=== PATIENT | female | born 1940 | race African-American/Black ===

== ENCOUNTER 2018-07-28 14:11 | Inpatient (IN) | payer MEDICARE, OTHER ==
[~2018-07-28] VITALS: Ht 160 cm; Wt 95.3 kg
[2018-07-28 14:42] LABS: BASOPHILS % (AUTO) 0.4 % (0.0-2.0); EOSINOPHILS % (AUTO) 1.3 % (0.0-6.0); HEMATOCRIT 31 % (33-45); LYMPHOCYTES # (AUTO) 0.5 /CMM (0.8-4.8); LYMPHOCYTES % (AUTO) 5.4 % (20.0-44.0); MEAN CORPUSCULAR HGB CONC 32 g/dl (31.0-36.0); MEAN CORPUSCULAR VOLUME 93 fL (82-100); MONOCYTES # (AUTO) 1.1 /CMM (0.1-1.30); MONOCYTES % (AUTO) 12.4 % (2.0-12.0); NEUTROPHILS # (AUTO) 6.8 /CMM (1.8-8.9); NEUTROPHILS % (AUTO) 80.5 % (43.0-81.0); PLATELET COUNT (AUTO) 220 /CMM (150-450); RED BLOOD CELL COUNT(AUTO) 3.37 MIL/uL (4.0-5.2); WHITE BLOOD COUNT (AUTO) 8.5 K/uL (4.3-11.0)
[2018-07-28 15:01] LABS: B-TYPE NATRIURETIC PEPTIDE 29378 PG/ML (0-125); CALCIUM, SERUM 9.9 mg/dL (8.5-10.1); CARBON DIOXIDE 32 mmol/L (21-32); CHLORIDE 92 mmol/L (98-107); CREATININE 6.2 mg/dL (0.6-1.3); GLUCOSE 182 mg/dL (74-106); POTASSIUM 5.4 mmol/L (3.5-5.1); SODIUM SERUM 131 mmol/L (136-145)
[2018-07-28 15:03] LABS: UREA NITROGEN, BLOOD 87 mg/dL (7-18)
[2018-07-28] MEDS ORDERED: CEFTRIAXONE 1GM BAG (ER ONLY) 1 GM/50 ML PIGGYBACK IV ONE (15:30)
--- NOTE | 2018-07-28 15:31 | NUR ---
[facility] PAGED, MILLWRIGHT HELPER
--- NOTE | 2018-07-28 15:37 | NUR ---
CALLED NURSING SUP. FOR TELE BED
[2018-07-28] MEDS ORDERED: CEFTRIAXONE 1GM BAG (ER ONLY) 50 ML IV ONE (15:49)
--- NOTE | 2018-07-28 15:57 | NUR ---
TELE BED 313-1 GIVEN
--- NOTE | 2018-07-28 16:21 | NUR ---
REPORT GIVEN TO SUKUMAR WINKLER FOR MARIANNA; PT WILL BE TRANSPORTED TO 3RD FLOOR VIA ACLS PROTOCOL ONCE MOVE PACKET IS IN ORDER
[2018-07-28] MEDS ORDERED: INSU100V11 SQ (16:25)
[2018-07-28] MEDS ORDERED: GABA-532 PO (16:25)
[2018-07-28] MEDS ORDERED: LINA5TAB PO (16:25)
[2018-07-28] MEDS ORDERED: HYDR-4076 PO (16:25)
[2018-07-28] MEDS ORDERED: NUT.237L85 PO (16:25)
[2018-07-28] MEDS ORDERED: LIDO30AD10 TP (16:25)
[2018-07-28] MEDS ORDERED: SERT50TA PO (16:25)
[2018-07-28] MEDS ORDERED: FLUT16SP BNOSTRILS (16:25)
[2018-07-28] MEDS ORDERED: CARV3.122 PO (16:25)
[2018-07-28] MEDS ORDERED: ATOR10TA PO (16:25)
[2018-07-28] MEDS ORDERED: POLY15DR40 EACHEYE (16:25)
[2018-07-28] MEDS ORDERED: SITA50TA PO (16:25)
[2018-07-28] MEDS ORDERED: SEVE2.4P3 PO (16:25)
[2018-07-28] MEDS ORDERED: MIDO5TAB PO (16:25)
[2018-07-28] MEDS ORDERED: AMIN30LI27 PO (16:25)
[2018-07-28] MEDS ORDERED: PANT40TA2 PO (16:25)
[2018-07-28] MEDS ORDERED: MELA3TAB PO (16:25)
[2018-07-28] MEDS ORDERED: POLY17PO4 PO (16:25)
[2018-07-28] MEDS ORDERED: LACT10SO PO (16:25)
[2018-07-28] MEDS ORDERED: FURO-144 PO (16:25)
[2018-07-28] MEDS ORDERED: LEVO75TA7 PO (16:25)
[2018-07-28] MEDS ORDERED: TRAM50TA2 PO (16:25)
--- NOTE | 2018-07-28 16:30 | NUR ---
RECEIVED REPORT FROM PETERSON ESCAMILLA. PATIENT IS GOING TO [facility] ADMITTED TO TELEMETRY FLOOR FOR INPATIENT SERVICES.
[2018-07-28] MEDS ORDERED: ONDANSETRON HCL/PF 4 MG/2 ML VIAL IVP PRN (17:00)
[2018-07-28] MEDS ORDERED: ACETAMINOPHEN 325 MG TABLET PO PRN (17:00)
[2018-07-28] MEDS ORDERED: MAGNESIUM HYDROXIDE 30 ML UDC PO PRN (17:00)
[2018-07-28] MEDS ORDERED: ZOLPIDEM TARTRATE 5 MG TABLET PO PRN (17:00)
[2018-07-28] MEDS ORDERED: PIPERACILLIN /TAZOBACTAM 2.25 G in IV D5W 50 ML IV SCH (17:00)
[2018-07-28] MEDS ORDERED: MAG HYDROX/AL HYDROX/SIMETH 30 ML UDC PO PRN (17:00)
[2018-07-28] MEDS ORDERED: FEE PK DOSING 1 MIN EA MC ONE (17:04)
--- NOTE | 2018-07-28 17:10 | NUR ---
FINANCIAL DEVELOPEREDUCATION INSTRUCTOR NOTE PATIENT WAS BROUGHT TO THE UNIT FROM ER ON A GURNEY. PATIENT IS STABLE, VITAL SIGNS STABLE. ALERT ORIENTED X3, WITH OCCASIONAL FORGETFULNESS AND CONFUSION. PATIENT IS ON 3L O2 VIA NC SATURATING AT 96%. RESPIRATIONS EVEN BUT SLIGHTLY LABORED DUE TO SOB WITH SPEAKING AND MOVING. IN NO APPARENT DISTRESS OR DISCOMFORT AT THIS TIME. WAS ASSISTED TO THE BED, MADE COMFORTABLE, ORIENTED TO ROOM AND CALL LIGHT. PATIENT IS A POOR HISTORIAN, UNABLE TO OBTAIN SIGNIFICANT MEDICAL HISTORY. TELE MONITORING APPLIED AV PACING ON THE MONITOR WITH HR OF 80. SKIN ASSESSMENT PERFORMED. PICTURES TAKEN PLACED IN CHART. BELONGINGS CHECKED AND NOTED IN THE CHART PATIENT WAS MADE COMFORTABLE IN BED, SAFETY MEASURES APPLIED, BED IN LOW LOCKED POSITION, SIDE RAILS UP X2, ALARM ON, CALL LIGHT WITHIN EASY REACH. HOSPITALIST AWARE OF PATIENT'S ARRIVAL. WILL CARRY OUT ADMISSION ORDERS AND CONTINUE TO MONITOR.
[2018-07-28] MEDS ORDERED: VANCOMYCIN 1 GM in IV D5W 250 ML IV ONE (18:00)
[2018-07-28 18:31] VITALS: BP 94/51
--- NOTE | 2018-07-28 19:20 | NUR ---
RECORD CUTTER CLOSING NOTE PATIENT IN BED. ALERT ORIENTED X3. ON 3L O2 VIA NC, TOLERATING WELL. IN NO APPARENT DISTRESS OR DISCOMFORT AT THIS TIME. RESPIRATIONS EVEN, MILD SOB NOTED WHEN TALKING. PATIENT IS ON TELE MONITORING, AV PACING WITH HR OF 80. CURRENTLY BEING DIALYZED. ABLE TO COMMUNICATE NEEDS IF ASKED. LEFT FA IVC 20G, SL, PATENT AND INTACT. PATIENT KEPT CLEAN AND COMFORTABLE. ALL NEEDS ATTENDED, SAFETY MEASURES IN PLACE, BED IN LOW LOCKED POSITION, SIDE RAILS UP X2, CALL LIGHT WITHIN EASY REACH, WILL ENDORSE TO PM NURSE FOR MARIANNA.
--- NOTE | 2018-07-28 19:21 | NUR ---
BUSINESS PROCESS SPECIALIST OPENING NOTES Received patient, alert and oriented but unable to maintain conversation. Currently on dialysis with HD RN at bedside. with LFA G# 20, SL, patent and intact. With occasional productive cough with thick yellow secretions noted. On O2 via NC @ 2LPM, saturating 96%, no SOB/respiratory noted. Kept HOB elevated at all times. Added Hep B screening per HD RN recommendation, made aware. Clarified accu-chek, Q6H as ordered. BS 120, next due is 0000. No discomfort noted at this time. Kept bed low and locked, siderail x2 up, bed alarm on for safety. Call light within easy reach. Held due meds at this time per HD RN recommendation, to administer post-HD. Will continue to monitor accordingly.
--- NOTE | 2018-07-28 19:22 | NUR ---
On tele monitor with AV pacing @ 80bpm.
[2018-07-28] MEDS ORDERED: DEXTROSE 50%-WATER 50 ML DISP.SYRIN IV PRN ×2 (19:30→21:00)
[2018-07-28] MEDS ORDERED: INSULIN REGULAR, HUMAN 100 UNIT/ML 3 ML VIAL SQ PRN (19:30)
[2018-07-28] MEDS ORDERED: POLYVINYL ALCOHOL 15 ML BOTTLE EACHEYE PRN (19:30)
[2018-07-28] MEDS: CARVEDILOL 3.125 MG TABLET PO SCH (19:30)
[2018-07-28] MEDS ORDERED: POLYETHYLENE GLYCOL 3350 17 GM POWD.PACK PO PRN (19:30)
[2018-07-28 20:00] VITALS: BP 98/50
--- NOTE | 2018-07-28 20:00 | NUR ---
PICKER TENDER NOTES Patient able to expectorate sputum. Sample collected and stored accordingly. Lab notified to metal pickling equipment operator the sample. Provided oral hygiene. Will continue to monitor accordingly.
[2018-07-28] MEDS ORDERED: BLOOD SUGAR DIAGNOSTIC 1 EACH STRIP IN SCH (21:00)
[2018-07-28] MEDS ORDERED: Medication Not On Formulary EA (Melatonin 6 MG) PO SCH (22:00)
--- NOTE | 2018-07-28 22:00 | NUR ---
TRANSIT MIXER OPERATOR NOTES HD done - 1L out. Checked BP 96/57, NM 71. Held Carvidelol at this time, notified MD. Administered IV ATB as ordered. Notified pharmacy for the adjusted time related to dialysis.
[2018-07-28] MEDS: ATORVASTATIN 10 MG TABLET PO SCH (22:34)
[2018-07-28] MEDS: BLOOD SUGAR DIAGNOSTIC 1 EACH STRIP IN SCH (23:59)
[2018-07-29] VITALS: BP 104/56
--- NOTE | 2018-07-29 00:05 | NUR ---
HORTICULTURAL SPECIALTY GROWER INSIDE NOTES BS for 0000 IS 151mg/dl. Held Insulin at this time due to patient NPO status without running IVF. Will continue to monitor the patient accordingly.
[2018-07-29 04:00] VITALS: BP 100/63
[2018-07-29] MEDS: PIPERACILLIN /TAZOBACTAM 2.25 G in IV D5W 50 ML IV SCH ×3 (04:04→20:11)
[2018-07-29] MEDS: BLOOD SUGAR DIAGNOSTIC 1 EACH STRIP IN SCH ×3 (05:46→17:16)
[2018-07-29 06:31] LABS: BASOPHILS % (AUTO) 0.5 % (0.0-2.0); EOSINOPHILS % (AUTO) 1.1 % (0.0-6.0); HEMATOCRIT 30 % (33-45); HEMOGLOBIN 9.6 g/dL (11.5-14.8); LYMPHOCYTES # (AUTO) 0.5 /CMM (0.8-4.8); LYMPHOCYTES % (AUTO) 6.6 % (20.0-44.0); MEAN CORPUSCULAR HGB CONC 32 g/dl (31.0-36.0); MEAN CORPUSCULAR VOLUME 93 fL (82-100); MONOCYTES # (AUTO) 0.8 /CMM (0.1-1.30); MONOCYTES % (AUTO) 11.5 % (2.0-12.0); NEUTROPHILS # (AUTO) 5.6 /CMM (1.8-8.9); NEUTROPHILS % (AUTO) 80.3 % (43.0-81.0); PLATELET COUNT (AUTO) 204 /CMM (150-450); RED BLOOD CELL COUNT(AUTO) 3.19 MIL/uL (4.0-5.2)
[2018-07-29 06:47] LABS: CALCIUM, SERUM 9.7 mg/dL (8.5-10.1); CARBON DIOXIDE 30 mmol/L (21-32); CHLORIDE 97 mmol/L (98-107); CREATININE 4.2 mg/dL (0.6-1.3); GLUCOSE 146 mg/dL (74-106); POTASSIUM 4.6 mmol/L (3.5-5.1); SODIUM SERUM 137 mmol/L (136-145); UREA NITROGEN, BLOOD 50 mg/dL (7-18)
[2018-07-29 06:52] LABS: IRON, SERUM 17 ug/dl (50-175); TOTAL IRON BINDING CAPACITY 177 ug/dl (250-450)
--- NOTE | 2018-07-29 06:53 | NUR ---
RESPOOLER NOTES Patient noted asleep at this time. S/P HD with 1L output, documented by the HD RN. With O2 inahalation via NC @ 3LPM, saturating well, no SOB/respiratory distress noted. Patient still with occasional productive cough with moderate thick yellow sputum noted. All due meds given as order, no ASE noted. All nursing needs attended. Kept patient clean, dry and comfortable on bed. Kept bed low and locked, siderails up, call light within easy reach. Endorsed to the next shift. Addendum: 07/29/18 at 0654 by ANDRAE CALIX RN On tele monitor - AV pacing @ 80bpm.
[2018-07-29 06:58] LABS: CHOLESTEROL 162 mg/dL (<200); HDL CHOLESTEROL 60 mg/dL (40-60); LDL 74 mg/dL (0-99); THYROID STIMULATING HORMONE 1.596 uIU/mL (0.358-3.74); TRIGLYCERIDES 123 mg/dL (30-150)
[2018-07-29] MEDS ORDERED: VANCOMYCIN 500 MG in IV D5W 100 ML IV PRN (07:00)
--- NOTE | 2018-07-29 07:38 | NUR ---
TERRAZZO WORKER HELPER OPENING NOTES RECEIVED PT LAYING IN BED WITH HOB ELEVATED. PT IS A/O X2, AFEBRILE. RESPIRATIONS ARE EVEN AND UNLABORED, NOT IN ANY ACUTE DISTRESS NOTED. PT DENIES ANY PAIN AT THIS TIME, NO C/O SOB, N/V. IV SITE TO LFA INTACT, NO INFILTRATION NOTED. DRESSING KEPT CLEAN AND DRY. SAFETY MEASURES ARE IN PLACE. WILL CONTINUE TO MONITOR THROUGHOUT SHIFT FOR CONTINUITY OF CARE.
[2018-07-29 07:58] VITALS: BP 90/50
[2018-07-29 08:00] VITALS: BP 90/50
--- NOTE | 2018-07-29 08:55 | NUR ---
MS RN NOTES-- PT WAS SEEN AND EXAMINED BY DR. CAPELLAN, ORDERS CARRIED OUT.
[2018-07-29] MEDS ORDERED: FUROSEMIDE 40 MG TABLET PO SCH (09:00)
[2018-07-29] MEDS ORDERED: SEVELAMER CARBONATE 800 MG TABLET PO SCH (09:00)
[2018-07-29] MEDS: CARVEDILOL 3.125 MG TABLET PO SCH ×2 (09:00→17:00)
[2018-07-29] MEDS ORDERED: GABAPENTIN 100 MG CAPSULE PO SCH (09:00)
[2018-07-29] MEDS: LEVOTHYROXINE SODIUM 75 MCG TABLET PO SCH (09:34)
[2018-07-29] MEDS: MIDODRINE HCL (5MG) 5 MG TABLET PO SCH ×3 (09:37→17:22)
[2018-07-29] MEDS: SERTRALINE HCL 50 MG TABLET PO SCH (09:38)
[2018-07-29] MEDS: GABAPENTIN 100 MG CAPSULE PO SCH ×3 (09:38→17:19)
[2018-07-29] MEDS: TRAMADOL HCL 50 MG TABLET PO SCH ×3 (09:39→17:19)
[2018-07-29] MEDS: LACTULOSE 10 G/15 ML UDC (PYXIS) PO SCH ×2 (09:40→17:19)
[2018-07-29] MEDS: PROSOURCE / PROSTAT (PYXIS) 30 ML UDC PO SCH ×2 (09:40→17:18)
[2018-07-29] MEDS: LIDOCAINE 5% (PATCH) 1 EA PATCH TP SCH (09:56)
[2018-07-29] MEDS: SEVELAMER CARBONATE 0.8 GM POWD.PACK PO SCH ×2 (10:29→12:02)
[2018-07-29] MEDS: INSULIN REGULAR, HUMAN 100 UNIT/ML 3 ML VIAL SQ PRN ×2 (11:37→17:24)
[2018-07-29] MEDS: PANTOPRAZOLE 40 MG TABLET.DR PO SCH (11:38)
[2018-07-29] MEDS: NEPRO VAN 237 ML CAN PO SCH (13:41)
[2018-07-29] MEDS: SOD FERRIC GLUC 125 MG in IV NS 0.9% 100 ML IV SCH (13:41)
[2018-07-29 16:00] VITALS: BP 92/56
[2018-07-29] MEDS: LACTOBACILLUS RHAMNOSUS GG 1 EACH CAP.SPRINK PO SCH (17:18)
[2018-07-29] MEDS: SEVELAMER CARBONATE 800 MG TABLET PO SCH (17:19)
--- NOTE | 2018-07-29 18:29 | NUR ---
MS RN CLOSING NOTES ALL DUE MEDS GIVEN, NEEDS MET AND RENDERED. PT IS A/O X2, AFEBRILE. RESPIRATIONS ARE EVEN AND UNLABORED, NOT IN ANY ACUTE DISTRESS NOTED. PT DENIES ANY PAIN AT THIS TIME, NO C/O N/V. HOB KEPT ELEVATED TO ENHANCE BREATHING. IV TO LFA INFILTRATED. NO REDNESS, WARMTH NOTED. ATTEMPTED TO INSERT IV X3, UNSUCCESSFUL. WILL TRY AGAIN. SAFETY MEASURES ARE IN PLACE. REMINDED PT TO USE CALL LIGHT WHEN ASSISTANCE IS NEEDED, CALL LIGHT IS LEFT WITHIN REACH. WILL ENDORSE TO NEXT SHIFT FOR CONTINUITY OF CARE.
--- NOTE | 2018-07-29 19:51 | NUR ---
MS/RN OPENING NOTES RECEIVED PATIENT IN BED, AWAKE, ALERT, REQUIRE IV INSERTION, UNABLE TO INSERT, WITH FAILED ATTEMPT X3. BY AM RN, ICU NURSE REQUEST AND TO FOLLOW UP FOR INSERTION, RESPIRATIONS EVEN AND UNLABORED, ON 2 LITER OXYGEN VIA NC, WILL MONITOR FOR ANY CHANGES, ABLE TO COUGH OUT SECRETIONS. NO GUARDING OR GRIMACE, OFFERED WATER TO DRINK, BED LOCKED. CALL LIGHTS WITHIN REACH. WILL MONITOR.
[2018-07-29 20:00] VITALS: BP_SYST 101; BP_SYST 95; BP_DIAS 44; BP_DIAS 49
--- NOTE | 2018-07-29 20:01 | NUR ---
MS/RN NOTES IV INSERTED ON LEFT HAND GAUGE 20 TOLERATED PROCEDURE, ABLE TO FLUSH,
[2018-07-29] MEDS: ATORVASTATIN 10 MG TABLET PO SCH (20:55)
[2018-07-30] VITALS: BP 102/47
[2018-07-30] MEDS: BLOOD SUGAR DIAGNOSTIC 1 EACH STRIP IN SCH ×4 (00:15→17:07)
[2018-07-30] MEDS: PIPERACILLIN /TAZOBACTAM 2.25 G in IV D5W 50 ML IV SCH ×3 (04:53→20:22)
--- NOTE | 2018-07-30 05:29 | NUR ---
ms/rn notes BLOOD SUGAR CHECK AT 151 REFUSE COVERAGE AT THIS TIME.
--- NOTE | 2018-07-30 06:28 | NUR ---
313-1MS/RN NOTES PATIENT ABLE TO SLEEP DURING THE NIGHT, ALERT X3, WEAK, SKIN WARM TO TOUCH, REPIRATIONS EVEN AND UNLABORES WITH OXYGEN VIA NC AT 2L, MONITORED FOR ANY CHANGES, BED LOCKED, CALL LIGHTS WITHIN REACH, WILL ENDORSE TO AM RN FOR MARIANNA.
[2018-07-30 06:31] LABS: BASOPHILS % (AUTO) 0.3 % (0.0-2.0); EOSINOPHILS % (AUTO) 1.1 % (0.0-6.0); HEMATOCRIT 27 % (33-45); HEMOGLOBIN 8.4 g/dL (11.5-14.8); LYMPHOCYTES # (AUTO) 0.6 /CMM (0.8-4.8); LYMPHOCYTES % (AUTO) 8.3 % (20.0-44.0); MEAN CORPUSCULAR HGB CONC 32 g/dl (31.0-36.0); MEAN CORPUSCULAR VOLUME 94 fL (82-100); MONOCYTES # (AUTO) 0.9 /CMM (0.1-1.30); MONOCYTES % (AUTO) 13.6 % (2.0-12.0); NEUTROPHILS # (AUTO) 5.1 /CMM (1.8-8.9); NEUTROPHILS % (AUTO) 76.7 % (43.0-81.0); PLATELET COUNT (AUTO) 199 /CMM (150-450); RED BLOOD CELL COUNT(AUTO) 2.84 MIL/uL (4.0-5.2); WHITE BLOOD COUNT (AUTO) 6.6 K/uL (4.3-11.0)
[2018-07-30 06:49] LABS: IRON, SERUM 42 ug/dl (50-175); TOTAL IRON BINDING CAPACITY 154 ug/dl (250-450)
[2018-07-30 07:27] LABS: FERRITIN 1230 ng/mL (8-388)
--- NOTE | 2018-07-30 07:34 | NUR ---
MS RN OPENING NOTES RECEIVED PT LAYING IN BED WITH HOB ELEVATED. PT IS A/O X2, AFEBRILE. RESPIRATIONS ARE EVEN AND UNLABORED, NOT IN ANY ACUTE DISTRESS NOTED. PT GENERALIZED PAIN 10/10, WILL MEDICATE NEEDED PER ORDERS. HOB KEPT ELEVATED TO ENHANCE BREATHING, NO N/V. IV SITE TO LEFT HAND INTACT, NO INFILTRATION NOTED. DRESSING KEPT CLEAN AND DRY. SAFETY MEASURES ARE IN PLACE. WILL CONTINUE TO MONITOR THROUGHOUT SHIFT FOR CONTINUITY OF CARE.
[2018-07-30 08:00] VITALS: BP 87/44
[2018-07-30] MEDS: SEVELAMER CARBONATE 800 MG TABLET PO SCH ×3 (08:14→17:09)
--- NOTE | 2018-07-30 08:45 | NUR ---
MS WINKLER NOTES-- PT NOTED WITH SOFT, LOOSE STOOL NOTED RED/BROWN COLOR. STOOL COLLECTED AND READY FOR SPECIMEN P/U. NOTIFIED LAB. Addendum: 07/30/18 at 1308 by DARIA BROWN RN NOTIFIED CHARGE NURSE, WHO THEN NOTIFIED DR. CAPELLAN AT 9AM MEETING.
[2018-07-30] MEDS: LACTOBACILLUS RHAMNOSUS GG 1 EACH CAP.SPRINK PO SCH ×2 (08:50→17:09)
[2018-07-30] MEDS: GABAPENTIN 100 MG CAPSULE PO SCH ×3 (08:50→17:10)
[2018-07-30] MEDS: LEVOTHYROXINE SODIUM 75 MCG TABLET PO SCH (08:50)
[2018-07-30] MEDS: MIDODRINE HCL (5MG) 5 MG TABLET PO SCH ×3 (08:51→17:10)
[2018-07-30] MEDS: SERTRALINE HCL 50 MG TABLET PO SCH (08:51)
[2018-07-30] MEDS: TRAMADOL HCL 50 MG TABLET PO SCH ×3 (08:51→17:10)
[2018-07-30] MEDS: LIDOCAINE 5% (PATCH) 1 EA PATCH TP SCH (08:52)
[2018-07-30] MEDS: LACTULOSE 10 G/15 ML UDC (PYXIS) PO SCH (08:53)
[2018-07-30] MEDS: CARVEDILOL 3.125 MG TABLET PO SCH ×2 (08:54→17:00)
[2018-07-30] MEDS: PROSOURCE / PROSTAT (PYXIS) 30 ML UDC PO SCH ×2 (08:57→17:11)
--- NOTE | 2018-07-30 09:32 | NUR ---
MS RN NOTES-- LACTULOSE HELD D/T SOFT, LOOSE STOOL.
[2018-07-30] MEDS: LEVALBUTEROL HCL NEB 1.25 MG/0.5 ML VIAL.NEB IH SCH ×3 (10:49→23:31)
[2018-07-30] MEDS: PANTOPRAZOLE 40 MG TABLET.DR PO SCH (11:22)
[2018-07-30] MEDS: INSULIN REGULAR, HUMAN 100 UNIT/ML 3 ML VIAL SQ PRN (11:32)
[2018-07-30] MEDS: NEPRO VAN 237 ML CAN PO SCH (12:49)
--- NOTE | 2018-07-30 13:08 | NUR ---
MS RN NOTES-- PT NOTED WITH MODERATE AMT OF LOOSE, DARK RED DISCHARGE FROM RECTUM. NOTIFIED CHARGE NURSE AND DR. CAPELLAN. PER DR. CAPELLAN, "PLS COLLECT STOOL FOR OCCULT BLOOD." NOTIFIED DR. CAPELLAN, 2 STOOL SPECIMENS COLLECTED. NOTIFIED LAB TO P/U SECOND SPECIMEN.
[2018-07-30] MEDS: SOD FERRIC GLUC 125 MG in IV NS 0.9% 100 ML IV SCH (14:06)
--- NOTE | 2018-07-30 14:15 | NUR ---
MS RN NOTES-- PER DR. CAPELLAN, HE NOTIFIED GI FOR CONSULT.
[2018-07-30 15:23] LABS: OCCULT BLOOD STOOL POSITIVE (NEGATIVE)
[2018-07-30 15:23] LABS: OCCULT BLOOD STOOL POSITIVE (NEGATIVE)
[2018-07-30 16:00] VITALS: BP 87/51
[2018-07-30] MEDS ORDERED: MAGNESIUM CITRATE 296 ML BOTTLE PO ONE (16:30)
[2018-07-30] MEDS ORDERED: NA PHOS,M-B/NA PHOS,DI-BA 1 EA ENEMA RC PRN (16:30)
[2018-07-30] MEDS ORDERED: PEG 3350/NA SULF,BICARB,CL/KCL 4,000 ML BOTTLE PO ONE (16:30)
[2018-07-30] MEDS ORDERED: FERROUS SULFATE (325 MG) 325 MG/TAB TABLET PO SCH (17:00)
--- NOTE | 2018-07-30 17:00 | NUR ---
MS PETERSON NOTES-- CLARIFIED ORDER FOR LACTULOSE WITH BLAEN BLANCO. PER BLANE BLANCO TO D/C.
[2018-07-30] MEDS: PANTOPRAZOLE 40 MG VIAL IV SCH (17:09)
[2018-07-30] MEDS: SUCRALFATE 1 G/10 ML UDC GT SCH ×2 (17:09→21:20)
--- NOTE | 2018-07-30 17:49 | NUR ---
MS RN NOTES-- BLOOD SUGAR 146. PT REFUSED 2 UNITS OF INSULIN. EXPLAINED THE RISKS AND BENEFITS, PT STILL REFUSED. NO S/SX OF HYPO/HYPERGLYCEMIA NOTED. WILL CONTINUE TO MONITOR.
--- NOTE | 2018-07-30 18:07 | NUR ---
MS RN NOTES-- CALLED [facility] (NEXT OF KIN ON FACESHEET), WOMEN ANSWERED AND STATED "I KEEP TELLING YOU GUYS, YOUVE GOT THE WRONG NUMBER." PT IS UNABLE TO SIGN D/T LOC.
--- NOTE | 2018-07-30 18:26 | NUR ---
MS RN CLOSING NOTES ALL DUE MEDS GIVEN, NEEDS MET AND RENDERED. PT IS A/O X2, AFEBRILE. RESPIRATIONS ARE EVEN AND UNLABORED, NOT IN ANY ACUTE DISTRESS NOTED. PT DENIES ANY PAIN AT THIS TIME, NO C/O N/V. HOB KEPT ELEVATED TO ENHANCE BREATHING. IV TO L WRIST INTACT, NO INFILTRATION NOTED. DRESSING KEPT CLEAN AND DRY. SAFETY MEASURES ARE IN PLACE. REMINDED PT TO USE CALL LIGHT WHEN ASSISTANCE IS NEEDED, CALL LIGHT IS LEFT WITHIN REACH. WILL ENDORSE TO NEXT SHIFT FOR CONTINUITY OF CARE.
--- NOTE | 2018-07-30 18:28 | NUR ---
MS RN NOTES-- CALLED [facility] AND THE NUMBER THEY HAVE MATCHES THE NUMBER WE HAVE IN CHART. NOTIFIED CHARGE NURSE, BLANE BLANCO AND DR. CAPELLAN. REQUIRES TO SIGNATURES. BLANE BLANCO AND DR. CAPELLAN SIGNED CONSENTS FOR EGD AND COLONSCOPY.
--- NOTE | 2018-07-30 19:42 | NUR ---
MS/RN OPENING NOTES RECEIVED PATIENT IN BED, AWAKE, ALERT X2, SKIN WARM TO TOUCH, DISCUSSED PLAN OF CARE AND VERBALIZED UNDERSTANDING REGARDING PREPARATION FOR THE EGD/COLONOSCOPY TOMORROW, REQUIRE TO DRINK SOME GOLITELY , ABLE TO TAKE SIPS OF WATER BUT VERBALIZED " i WONT BE ABLE TO DRINK IT ALL" DISCUSSED BENEFIR, TO MONITOR AND CHANGE NEEDED. RESPIRATIONS EVEN AND UNLABORED. BED LOCKED. MONITORED FOR ANY CHANGES. IV ON LEFT HAND GAUGE 20 PATENT WITH NO S/S OF INFILTRATION, TO MONITOR VITAL SIGNS AND HYPO/HYPERGLYCEMIA.
[2018-07-30 20:00] VITALS: BP 92/54
[2018-07-30 20:04] VITALS: BP 92/54
--- NOTE | 2018-07-30 20:18 | NUR ---
MD PRINCE CONTACTED REPORTED PATIENT UNABLE TO TOERATE GOLITELY,DIALYSIS PATIENT , REGARDING PROCEDURE OF EGD AND COLONOSCOPY. FOR TOMORROWMAY NEED ENEMA, MD MADE AWARE AND TO F/U WITH CLOSING COORDINATOR AND AWAITING FOR ORDER INSTRUCTION AT THIS TIME.
[2018-07-30] MEDS: ATORVASTATIN 10 MG TABLET PO SCH (21:19)
[2018-07-30] MEDS ORDERED: VANCOMYCIN 1 GM in IV D5W 250 ML IV ONE (22:00)
--- NOTE | 2018-07-30 22:35 | NUR ---
MS/RN NOTES VANCOMYCIN NOT ADMINISTERED ORDERED TO ADMINISTER AFTER HEMODIALYSIS TREATMENT DONE. PER MD DIALYSIS/NURSE TO BE SCHEDULED TOMORROW.
[2018-07-31] MEDS: BLOOD SUGAR DIAGNOSTIC 1 EACH STRIP IN SCH ×5 (00:16→23:43)
--- NOTE | 2018-07-31 00:20 | NUR ---
MS/RN NOTES BLOOD SUGAR AT 155, PATIENT WAS GIVEN SOME GOLITELY DURING , REFUSE TO HAVE COVERAGE OF IONSULIN, MADE AWARE OF BENEFITS.
[2018-07-31] MEDS: PIPERACILLIN /TAZOBACTAM 2.25 G in IV D5W 50 ML IV SCH ×3 (05:49→21:11)
[2018-07-31 06:31] LABS: OCCULT BLOOD STOOL POSITIVE (NEGATIVE)
--- NOTE | 2018-07-31 06:52 | NUR ---
313-1 MS/RN NOTES PATIENT SLEPT FEW HOURS, REQUIRE ASSISTANCE AND MONITORING. RESPIRATIONS EVEN AND UNLABOREDM SKIN WARM TO TOUCHMONITORED FOR MARGARET CHANGES.BED LOCKED CALL LIGHTS WITHIN REACH.
[2018-07-31] MEDS ORDERED: VANCOMYCIN 500 MG in IV D5W 100 ML IV PRN (07:00)
--- NOTE | 2018-07-31 07:20 | NUR ---
RN Medsurg notes RN medsurg opening notes PT is resting in bed comfortably. PT is alert and oriented X2. Respiration is clear, equal and unlabored. NO SOB. IV at Left hand is intact, patent and flush without resistance. Bed at low position and call light is within reach. Will continue to monitor.
[2018-07-31] MEDS: LEVALBUTEROL HCL NEB 1.25 MG/0.5 ML VIAL.NEB IH SCH ×3 (07:38→23:18)
[2018-07-31 08:00] VITALS: BP 90/55
[2018-07-31] MEDS: CARVEDILOL 3.125 MG TABLET PO SCH ×2 (09:00→17:00)
[2018-07-31] MEDS: PROSOURCE / PROSTAT (PYXIS) 30 ML UDC PO SCH ×2 (09:00→17:00)
[2018-07-31] MEDS: PANTOPRAZOLE 40 MG VIAL IV SCH ×2 (09:17→18:14)
[2018-07-31] MEDS: LEVOTHYROXINE SODIUM 75 MCG TABLET PO SCH (09:17)
[2018-07-31] MEDS: LACTOBACILLUS RHAMNOSUS GG 1 EACH CAP.SPRINK PO SCH ×2 (09:17→18:37)
[2018-07-31] MEDS: SERTRALINE HCL 50 MG TABLET PO SCH (09:17)
[2018-07-31] MEDS: SEVELAMER CARBONATE 800 MG TABLET PO SCH ×4 (09:18→18:00)
[2018-07-31] MEDS: GABAPENTIN 100 MG CAPSULE PO SCH ×3 (09:24→18:37)
[2018-07-31] MEDS: MIDODRINE HCL (5MG) 5 MG TABLET PO SCH ×3 (09:24→18:37)
[2018-07-31] MEDS: SUCRALFATE 1 G/10 ML UDC GT SCH ×4 (09:24→23:41)
[2018-07-31] MEDS: TRAMADOL HCL 50 MG TABLET PO SCH ×3 (09:27→18:38)
[2018-07-31] MEDS: LIDOCAINE 5% (PATCH) 1 EA PATCH TP SCH (11:01)
[2018-07-31 11:14] LABS: BASOPHILS # (AUTO) 0.1 /CMM (0.0-0.2); BASOPHILS % (AUTO) 1.3 % (0.0-2.0); EOSINOPHILS % (AUTO) 1.2 % (0.0-6.0); HEMATOCRIT 23 % (33-45); HEMOGLOBIN 7.4 g/dL (11.5-14.8); LYMPHOCYTES # (AUTO) 0.5 /CMM (0.8-4.8); LYMPHOCYTES % (AUTO) 6.1 % (20.0-44.0); MEAN CORPUSCULAR HGB CONC 32 g/dl (31.0-36.0); MEAN CORPUSCULAR VOLUME 93 fL (82-100); MONOCYTES # (AUTO) 0.7 /CMM (0.1-1.30); MONOCYTES % (AUTO) 9.8 % (2.0-12.0); NEUTROPHILS # (AUTO) 6.1 /CMM (1.8-8.9); NEUTROPHILS % (AUTO) 81.6 % (43.0-81.0); PLATELET COUNT (AUTO) 205 /CMM (150-450); RED BLOOD CELL COUNT(AUTO) 2.49 MIL/uL (4.0-5.2); WHITE BLOOD COUNT (AUTO) 7.5 K/uL (4.3-11.0)
--- NOTE | 2018-07-31 12:17 | NUR ---
RN MS NOTES DR. SALDIVAR INFORMED OF PT'S LATEST H/H, .07/22, SAID HE IS AWARE OF IT, NO NEW ORDER GIVEN.
[2018-07-31] MEDS: INSULIN REGULAR, HUMAN 100 UNIT/ML 3 ML VIAL SQ PRN (12:30)
--- NOTE | 2018-07-31 13:15 | NUR ---
Julia RN notes PT refused Renagel medication. PT education and teaching provided and PT still refused the medication.
[2018-07-31] MEDS: NEPRO VAN 237 ML CAN PO SCH (14:33)
[2018-07-31 16:00] VITALS: BP 111/77
--- NOTE | 2018-07-31 17:00 | NUR ---
RN MS NOTES PT REFUSE RENAGEL TABS, EXPLAINED RISKS AND BENEFITS, STILL REFUSED.
--- NOTE | 2018-07-31 18:00 | NUR ---
RN MS NOTES PT IN BED, AWAKE, NOT IN DISTRESS, SEEN BY FRANCIS ARGUELLES, INFORMED THAT PT UNABLE TO TOLERATE PO, ORDERED TO INSERT NGT AND RESTART GOLYTELY, NGT INSERTED, AWAITING XRAY VERIFICATION OF PLACEMENT, ALSO ORDERED TO TRANSFUSE 1 UNIT PRBC, NOTED AND CARRIED OUT, PT TOLERATED PROCEDURE WELL, PM MEDS GIVEN, KEPT COMFORTABLE IN BED.
[2018-07-31] MEDS ORDERED: PEG 3350/NA SULF,BICARB,CL/KCL 4,000 ML BOTTLE PO ONE (18:30)
--- NOTE | 2018-07-31 19:09 | NUR ---
RN medsurg closing notes PT is resting in bed. no complaints of pain, nausea or vomiting. Pt is in 2L NC. No SOB. NG tube has been inserted per MD order. IV is intact in Left hand patent, intact and infusing well. HOB elevated to help with breathing and prevent aspiration. Last blood glucose was 164. Meds have been given and assisted all needs. Bed at low position and call light is within reach. Will endorse to PM nurse.
--- NOTE | 2018-07-31 19:30 | NUR ---
RN NOTES RECEIVED PT. AWAKE ON BED, A/OX2, HAS GI BLEEDING, NG-TUBE IN PLACE -FOR GOLYTELY, NOT IN DISTRESS, NO SOB, CALL LIGHT WITHIN REACH, SIDERAILSUPX2, CONTINUE TO MONITOR
[2018-07-31 20:00] VITALS: BP 111/58
--- NOTE | 2018-07-31 20:25 | NUR ---
RN NOTES CHECK NG-TUBE PLACEMENT BEFORE STARTING GIVING GOLYTELY.. NG-TUBE IN PLACE
--- NOTE | 2018-07-31 20:30 | NUR ---
RN NOTES START GIVING GOLYTELY THROUGH NG-TUBE, PT. IS TOLERATING WELL, CONTINUE TO MONITOR
[2018-07-31] MEDS ORDERED: VANCOMYCIN 1 GM in IV D5W 250 ML IV ONE (21:00)
--- NOTE | 2018-07-31 21:00 | NUR ---
RN NOTES DIALYSIS NURSE CAME .. CALLED PHARMACY FOR VANCOMYCIN IV TO BE GIVEN WITH HD.. SPOKE TO BRANDY AND INSTEAD OF GIVING 5OOMG SHE WILL GIVE 1 GM OF VANCO.FOR INITIAL DOSE
[2018-07-31] MEDS ORDERED: BISACODYL (5 MG) 5 MG TABLET.DR PO PRN (22:00)
--- NOTE | 2018-07-31 23:19 | NUR ---
RT NOTE PT IS ON DIALYSIS AT THE MOMENT. DIALYSIS NURSE DOES NOT WANT ME TO GIVE THE PT BREATHING TX RIGHT NOW. RN AWARE.
--- NOTE | 2018-07-31 23:30 | NUR ---
RN NOTES RECEIVED A CALL FROM FRANCIS VELEZ TO STOP THE GOLYTELY BECAUSE PT. EGD WAS RESCHEDULED ON SATURDAY AND PUT BACK PT. ON CLEAR LIQUID DIET.. INFORMED FRANCIS VELEZ THAT PT. STILL BLEEDING , FRANCIS ORDERED TO GIVE THE CARAFATE WHICH PT. IS GETTING ONE ALREADY AND PT IS ALSO GETTING PROTONIX IV BID, ORDER NOTED AND CARRIED OUT
[2018-07-31] MEDS: ATORVASTATIN 10 MG TABLET PO SCH (23:42)
[2018-07-31] MEDS: HYDROCODONE/APAP 5/325MG 1 EACH TABLET PO PRN (23:59)
[2018-08-01] VITALS (74 sets, daily range): BP systolic 38–134; BP diastolic 20–98
--- NOTE | 2018-08-01 | NUR ---
RN NOTES BLOOD SUGAR-156.. NO COVERAGE GIVEN, PT. DOESN'T WANT TO EAT
--- NOTE | 2018-08-01 00:10 | NUR ---
RN NOTES INFORMED ALLEN SARGENT THAT PT IS BLEEDING A LOT , PT HAS GI BLEED AND WAS SUPPOSED TO BE GIVEN A 1 UNIT PRBC BUT THE DIALYSIS JUST FINISHED AT 2300 AND NEED ANOTHER DOCTOR TO SIGN A CONSENT FOR BLOOD TRANSFUSION. ALLEN SAREGNT ORDER STAT CBC, ORDER NOTED AND CARRIED OUT
--- NOTE | 2018-08-01 00:30 | NUR ---
RN NOTES PATIENT PULLED OUT HER NG-TUBE AND REFUSED TO HAVE ANOTHER ONE
[2018-08-01 00:36] LABS: BASOPHILS # (AUTO) 0.1 /CMM (0.0-0.2); BASOPHILS % (AUTO) 1.3 % (0.0-2.0); EOSINOPHILS % (AUTO) 1.5 % (0.0-6.0); HEMATOCRIT 21 % (33-45); LYMPHOCYTES # (AUTO) 0.4 /CMM (0.8-4.8); LYMPHOCYTES % (AUTO) 5.7 % (20.0-44.0); MEAN CORPUSCULAR HGB CONC 32 g/dl (31.0-36.0); MEAN CORPUSCULAR VOLUME 93 fL (82-100); MONOCYTES # (AUTO) 0.8 /CMM (0.1-1.30); MONOCYTES % (AUTO) 10.4 % (2.0-12.0); NEUTROPHILS # (AUTO) 6.1 /CMM (1.8-8.9); NEUTROPHILS % (AUTO) 81.1 % (43.0-81.0); PLATELET COUNT (AUTO) 202 /CMM (150-450); RED BLOOD CELL COUNT(AUTO) 2.22 MIL/uL (4.0-5.2); WHITE BLOOD COUNT (AUTO) 7.6 K/uL (4.3-11.0)
[2018-08-01 00:40] LABS: HEMOGLOBIN 6.6 g/dL (11.5-14.8)
--- NOTE | 2018-08-01 00:48 | NUR ---
RN NOTES INFORMED ALLEN HUDSON PATIENT H&H IS 6.6... HE ORDER 1 UNIT PRBC TO BE GIVEN.ORDER NOTED AND CARRIED OUT
[2018-08-01 00:58] LABS: EOSINOPHILS % (MANUAL) 2 % (0-4); LYMPHOCYTES % (MANUAL) 7 % (16-48); MONOCYTES % (MANUAL) 10 % (0-11.0); NEUTROPHILS % (MANUAL) 81 (42-76)
--- NOTE | 2018-08-01 01:22 | NUR ---
RN NOTES START BLOOD TRANFUSION PT. V/S IS 88/46- MD MADE AWARE , WILL CONTINUE TO MONITOR
--- NOTE | 2018-08-01 01:40 | NUR ---
RN NOTES CHECKED PT. BLOOD PRESSURE MANUALLY 90/50 ... BLOOD TRANSFUSION IS RUNNING NO, REACTION NOTED, CONTINUE TO MONITOR
--- NOTE | 2018-08-01 04:50 | NUR ---
RN NOTES BLOOD TRANSFUSION FINISHED, BP WENT UP TO 91/61... NO REACTION NOTED, CONTINUE TO MONITOR
[2018-08-01] MEDS: PIPERACILLIN /TAZOBACTAM 2.25 G in IV D5W 50 ML IV SCH ×3 (05:19→20:26)
[2018-08-01] MEDS: BLOOD SUGAR DIAGNOSTIC 1 EACH STRIP IN SCH ×3 (05:33→18:00)
--- NOTE | 2018-08-01 07:00 | NUR ---
RN NOTES AWAKE, MORNING CARE RENDERED, SIDERAILSUPX2, NO T IN DISTRESS, NO PAIN NOTED, PT. NEEDS ATTENDED
[2018-08-01] MEDS: LEVALBUTEROL HCL NEB 1.25 MG/0.5 ML VIAL.NEB IH SCH ×3 (07:54→23:49)
--- NOTE | 2018-08-01 08:00 | NUR ---
MS RN NOTES PT ALERT ORIENTED X 2, NO SOB OR ANY ACUTE DISTRESS NOTED. BLOOD PRESSURE NOTED 78/42, HR 94, RR 20. PT REPORT DIZZINESS. PT POSITIONED [place], BP RECHECKED 82/46. [place] 5MG ADMINISTERED. DR. CAPELLAN MADE AWARE ORDERS OBTAINED FOR 1 UNIT PRBC STAT AND 500 ML NS BOLUS STAT. PT EVALUATED BY DR. NUNEZ ORDERS GIVEN TO TRANSFER PT TO ICU. NOTED AND CARRIED OUT. CHARGE NURSE MADE AWARE, PT TO BE TRANSFER TO ROOM 259.
[2018-08-01] MEDS: MIDODRINE HCL (5MG) 5 MG TABLET PO SCH ×3 (08:07→16:36)
[2018-08-01] MEDS: PANTOPRAZOLE 40 MG VIAL IV SCH ×2 (08:07→16:34)
[2018-08-01] MEDS: SUCRALFATE 1 G/10 ML UDC GT SCH ×4 (08:08→22:16)
[2018-08-01] MEDS: LEVOTHYROXINE SODIUM 75 MCG TABLET PO SCH (08:09)
--- NOTE | 2018-08-01 08:15 | NUR ---
MS RN NOTES PT TRANSFERRED TO ICU. REPORT GIVEN AT BEDSIDE TO
[2018-08-01] MEDS ORDERED: IV NS 0.9% 500 ML BAG IV ONE (08:30)
[2018-08-01] MEDS ORDERED: IV NS 0.9% 500 ML BAG IV STA (08:33)
[2018-08-01 08:50] LABS: BASOPHILS % (AUTO) 0.3 % (0.0-2.0); EOSINOPHILS % (AUTO) 0.8 % (0.0-6.0); HEMATOCRIT 21 % (33-45); HEMOGLOBIN 6.7 g/dL (11.5-14.8); LYMPHOCYTES # (AUTO) 0.6 /CMM (0.8-4.8); LYMPHOCYTES % (AUTO) 6.2 % (20.0-44.0); MEAN CORPUSCULAR HGB CONC 32 g/dl (31.0-36.0); MEAN CORPUSCULAR VOLUME 93 fL (82-100); MONOCYTES # (AUTO) 0.8 /CMM (0.1-1.30); MONOCYTES % (AUTO) 8.7 % (2.0-12.0); NEUTROPHILS # (AUTO) 7.6 /CMM (1.8-8.9); PLATELET COUNT (AUTO) 166 /CMM (150-450); RED BLOOD CELL COUNT(AUTO) 2.24 MIL/uL (4.0-5.2)
[2018-08-01] MEDS: CARVEDILOL 3.125 MG TABLET PO SCH ×2 (09:00→16:35)
--- NOTE | 2018-08-01 09:00 | NUR ---
received pt from [facility], s/p low GI bleed, alert, follows commands, AV pacing, on 3L 02 sat well, bloody BM, low h/h PRBCs will be given, HD pt, colonoscopy and EGD canceled for today, BP on the lower side, 500 NS bolus given, awaiting for PICC line insertion, pt cleaned, changed and repositioned.
[2018-08-01] MEDS: LIDOCAINE 5% (PATCH) 1 EA PATCH TP SCH (09:21)
[2018-08-01] MEDS: TRAMADOL HCL 50 MG TABLET PO SCH ×3 (09:21→16:35)
[2018-08-01] MEDS: SERTRALINE HCL 50 MG TABLET PO SCH (09:21)
[2018-08-01] MEDS: PROSOURCE / PROSTAT (PYXIS) 30 ML UDC PO SCH ×2 (09:22→16:50)
[2018-08-01] MEDS: SEVELAMER CARBONATE 800 MG TABLET PO SCH ×3 (09:26→17:33)
[2018-08-01] MEDS: GABAPENTIN 100 MG CAPSULE PO SCH ×3 (09:27→16:34)
[2018-08-01] MEDS: LACTOBACILLUS RHAMNOSUS GG 1 EACH CAP.SPRINK PO SCH ×2 (09:27→16:34)
[2018-08-01 09:36] LABS: EOSINOPHILS % (MANUAL) 4 % (0-4); LYMPHOCYTES % (MANUAL) 9 % (16-48); MONOCYTES % (MANUAL) 3 % (0-11.0); NEUTROPHILS % (MANUAL) 84 (42-76)
--- NOTE | 2018-08-01 13:17 | NUR ---
pt is resting in the bed, AV pacing, on 3L 02 sat well, BP low, no line to transfuse and give pressors, DR Valentine notified, he will call ER MD to insert central line.
[2018-08-01] MEDS: NEPRO VAN 237 ML CAN PO SCH (13:29)
--- NOTE | 2018-08-01 16:26 | NUR ---
pt is resting in the bed, AV pacing, receiving blood, alert, follows commands, v/s stable, no pain, pt cleaned, changed and repositioned q2hrs.
[2018-08-01] MEDS: NOREPINEPHRINE 16 MG in IV D5W 500 ML IV PRN (17:53)
[2018-08-01] MEDS: INSULIN REGULAR, HUMAN 100 UNIT/ML 3 ML VIAL SQ PRN (17:59)
--- NOTE | 2018-08-01 19:45 | NUR ---
FRUIT RAISER: CT ABDOMEN WTO CONTRAST HELD AT THIS TIME. SBP IN THE 60s. WILL TITRATE LEVOPHED NEEDED. RECEIVED HGB=6.3 AND HCT= 19. PAGED , AWAITING FOR CALL BACK.
[2018-08-01 19:46] LABS: HEMOGLOBIN 6.3 g/dL (11.5-14.8)
[2018-08-01] MEDS: ATORVASTATIN 10 MG TABLET PO SCH (22:18)
--- NOTE | 2018-08-01 23:30 | NUR ---
RAD TECHNOLOGIST: BLOOD TRANSFUSION DONE WT NO ADVERSE SIDE EFFECTS. PT STILL NOTED WT BLOODY STOOLS. OBTAINED ORDER TO REDRAW H&H IN AN HOUR.
[2018-08-02] VITALS (130 sets, daily range): BP systolic 42–202; BP diastolic 18–154
[2018-08-02] MEDS: BLOOD SUGAR DIAGNOSTIC 1 EACH STRIP IN SCH ×4 (00:31→17:41)
[2018-08-02] MEDS: INSULIN REGULAR, HUMAN 100 UNIT/ML 3 ML VIAL SQ PRN ×3 (00:33→12:15)
[2018-08-02 01:07] LABS: HEMOGLOBIN 6.4 g/dL (11.5-14.8)
--- NOTE | 2018-08-02 01:30 | NUR ---
CHILDBIRTH AND INFANT CARE TEACHER: RELAYED H&H RESULT TO SAMANTHA VILLA AND INFORMED HIM THAT PT STILL HAVING BLOODY STOOLS. SAMANTHA WT ORDER TO TRANSFUSE 1 MORE UNIT PRBC. NOTED AND CARRIED OUT.
--- NOTE | 2018-08-02 02:10 | NUR ---
INTAKE NURSE: 2ND UNIT OF PRBC FOR THE SHIFT STARTED PER ALLEN EMPLOYEE OPERATIONS EXAMINER ORDER FOR HGB=6.4. WILL CONTINUE TO MONITOR FOR ADVERSE REACTIONS. PT BP IS VERY LABILE, CONTINUE LEVOPHED TITRATION NEEDED.
[2018-08-02] MEDS: PIPERACILLIN /TAZOBACTAM 2.25 G in IV D5W 50 ML IV SCH ×3 (04:49→21:24)
--- NOTE | 2018-08-02 05:00 | NUR ---
COTTON CLASSER: 2ND UNIT PRBC TRANSFUSED WT NO ADVERSE SIDE EFFECTS.
[2018-08-02 06:24] LABS: BASOPHILS # (AUTO) 0.2 /CMM (0.0-0.2); BASOPHILS % (AUTO) 1.1 % (0.0-2.0); EOSINOPHILS % (AUTO) 0.3 % (0.0-6.0); HEMATOCRIT 21 % (33-45); LYMPHOCYTES # (AUTO) 1.3 /CMM (0.8-4.8); LYMPHOCYTES % (AUTO) 7.5 % (20.0-44.0); MEAN CORPUSCULAR HGB CONC 33 g/dl (31.0-36.0); MEAN CORPUSCULAR VOLUME 89 fL (82-100); MONOCYTES # (AUTO) 2.2 /CMM (0.1-1.30); MONOCYTES % (AUTO) 12.5 % (2.0-12.0); NEUTROPHILS % (AUTO) 78.6 % (43.0-81.0); PLATELET COUNT (AUTO) 200 /CMM (150-450); RED BLOOD CELL COUNT(AUTO) 2.36 MIL/uL (4.0-5.2); WHITE BLOOD COUNT (AUTO) 17.7 K/uL (4.3-11.0)
[2018-08-02] MEDS: NOREPINEPHRINE 16 MG in IV D5W 500 ML IV PRN ×2 (06:32→22:17)
[2018-08-02 06:33] LABS: HEMOGLOBIN 6.9 g/dL (11.5-14.8)
[2018-08-02 06:39] LABS: ALANINE AMINOTRANSFERASE 12 U/L (12-78); ALBUMIN 1.6 g/dL (3.4-5.0); ALKALINE PHOSPHATASE 79 U/L (46-116); ASPARTATE AMINOTRANSFERASE 17 U/L (15-37); BILIRUBIN,TOTAL 0.6 mg/dL (0.2-1.0); CALCIUM, SERUM 8.6 mg/dL (8.5-10.1); CARBON DIOXIDE 25 mmol/L (21-32); CHLORIDE 104 mmol/L (98-107); CREATININE 6.4 mg/dL (0.6-1.3); GLUCOSE 264 mg/dL (74-106); MAGNESIUM 2.7 mg/dL (1.8-2.4); PHOSPHORUS 7.3 mg/dL (2.5-4.9); POTASSIUM 5.8 mmol/L (3.5-5.1); SODIUM SERUM 141 mmol/L (136-145); TOTAL PROTEIN, SERUM 4.6 g/dL (6.4-8.2); UREA NITROGEN, BLOOD 66 mg/dL (7-18)
--- NOTE | 2018-08-02 06:50 | NUR ---
PROCESS OWNER: RECEIVED H/H=6.12/20, LINDA WAITE. AWAITING FOR CALL BACK. CONTINUE ON LEVOPHED AT 24MCG/MIN WT LABILE BP THROUGHOUT THE SHIFT. PT REMAINS ALERT WT CONFUSION. NO ACUTE DISTRESS. NO C/O PAIN. WILL ENDORSE TO DAY SHIFT FOR CONTINUITY OF CARE.
--- NOTE | 2018-08-02 07:00 | NUR ---
RN NOTES RECEIVED PT ON BED, A/Ox1, ON 2 L O2 N/C, NO SOB NOTED, O2 SAT 95%, ON TELE AV PACING , HR IN 80'S , LEVO GTT AT 24MCG/MIN RUNNING VIA R FEMORAL TLC LINE , SITE CLEAN DRY AND INTACT, PT IS NPO AT THIS TIME, SR UP x3, CALL LIGHT WITHIN EASY REACH, BED LOCKED AND IN LOWEST POSITION , CONTINUE TO MONITOR . Addendum: 08/02/18 at 0824 by ALEENA MARTINES RN ABOVE CHARTING DONE BY ALEENA MARTINES AT 0700
[2018-08-02] MEDS: LEVALBUTEROL HCL NEB 1.25 MG/0.5 ML VIAL.NEB IH SCH ×2 (07:58→15:28)
[2018-08-02] MEDS: SEVELAMER CARBONATE 800 MG TABLET PO SCH ×3 (08:00→17:21)
--- NOTE | 2018-08-02 08:00 | NUR ---
RN NOTES A-LINE NOT AVAILABLE AT THIS TIME .
[2018-08-02] MEDS: SUCRALFATE 1 G/10 ML UDC GT SCH ×4 (08:25→21:29)
[2018-08-02] MEDS: LACTOBACILLUS RHAMNOSUS GG 1 EACH CAP.SPRINK PO SCH ×2 (08:26→17:21)
[2018-08-02] MEDS: PANTOPRAZOLE 40 MG VIAL IV SCH ×2 (08:26→17:19)
[2018-08-02] MEDS: CARVEDILOL 3.125 MG TABLET PO SCH ×2 (08:26→17:21)
[2018-08-02] MEDS: LEVOTHYROXINE SODIUM 75 MCG TABLET PO SCH (08:26)
[2018-08-02] MEDS: TRAMADOL HCL 50 MG TABLET PO SCH ×3 (08:27→17:21)
[2018-08-02] MEDS: SERTRALINE HCL 50 MG TABLET PO SCH (08:27)
[2018-08-02] MEDS: MIDODRINE HCL (5MG) 5 MG TABLET PO SCH ×3 (08:27→17:20)
[2018-08-02] MEDS: GABAPENTIN 100 MG CAPSULE PO SCH ×3 (08:27→17:21)
[2018-08-02] MEDS: PROSOURCE / PROSTAT (PYXIS) 30 ML UDC PO SCH ×3 (08:28→17:22)
--- NOTE | 2018-08-02 08:30 | NUR ---
RN NOTES DR SALDIVAR AT THE BEDSIDE AT THE BEDSIDE SEEING THE PATIENT .
[2018-08-02] MEDS: LIDOCAINE 5% (PATCH) 1 EA PATCH TP SCH (08:32)
[2018-08-02 08:48] LABS: LYMPHOCYTES % (MANUAL) 12 % (16-48); MONOCYTES % (MANUAL) 14 % (0-11.0); NEUTROPHILS % (MANUAL) 74 (42-76)
[2018-08-02] MEDS: HYDROCODONE/APAP 5/325MG 1 EACH TABLET PO PRN (09:02)
--- NOTE | 2018-08-02 09:22 | NUR ---
RN NOTES PT TO OR FOR EGD AT THIS TIME IN STABLE CONDITION .
[2018-08-02 10:22] LABS: ABG BASE EXCESS -8.4 mmol/L; ABG OXYGEN SATURATION 97.6 % (92.0-98.5); ABG PCO2 48.4 mmHg (35.0-45.0); ABG PH 7.208 (7.350-7.450); ABG PO2 135.1 mmHg (75.0-100.0); AaDO2 65.4 mmHg; COHb 1.7 % (0.5-1.5); SITE, ABG Left Radial; VENT MODE, BG NASAL CANNULA
--- NOTE | 2018-08-02 10:25 | NUR ---
RN NOTES PT BACK IN ROOM , EGD CANCELLED PER ANESTHESIOLOGIST.
--- NOTE | 2018-08-02 10:40 | NUR ---
RT Pt placed on BiPAP per Dr. Vigil orders. BiPAP alarms are set and audible with BVM by bedside. BiPAP is plugged into red outlet. Pt tolerating well at this time, no respiratory distress noted. Addendum: 08/02/18 at 1626 by YUSUF THAYER RT Amended: Links added.
--- NOTE | 2018-08-02 10:45 | NUR ---
RN NOTES PT PLACED ON BIPAP PER DR SELLERS ORDER .
--- NOTE | 2018-08-02 12:00 | NUR ---
RN NOTES ONE UNIT OF PRB INFUSED, PT TOLERATED WELL, CONTINUE TO MONITOR
[2018-08-02] MEDS: NEPRO VAN 237 ML CAN PO SCH (12:15)
[2018-08-02 12:26] LABS: ABG BASE EXCESS -6.6 mmol/L; ABG OXYGEN SATURATION 95.9 % (92.0-98.5); ABG PCO2 48.1 mmHg (35.0-45.0); ABG PH 7.244 (7.350-7.450); ABG PO2 96.4 mmHg (75.0-100.0); COHb 1.1 % (0.5-1.5); MetHb 0.9 % (0.0-1.5); SITE, ABG Left Radial
[2018-08-02 12:50] LABS: HEMOGLOBIN 7.4 g/dL (11.5-14.8)
--- NOTE | 2018-08-02 13:27 | NUR ---
RN NOTES DR REY NOTIFED REGARDING H/H 7.07/22, NEW ORDER RECEIVED , CONTINUE TO MONITOR .
--- NOTE | 2018-08-02 14:22 | NUR ---
RN NOTES DR AHN AT THE BEDSIDE ,PLACING A- LINE AT THIS TIME .
--- NOTE | 2018-08-02 14:52 | NUR ---
RN NOTES DR PRINCE AND DR HAN AT THE BEDSIDE FOR EGD PROCEDURE.
--- NOTE | 2018-08-02 15:03 | NUR ---
RT Pt orally intubated with a 7.0 ETT secured at 22cm a the lip line. Positive CO2 color change and equal bilateral breath sounds and chest rise. VETERINARY PARASITOLOGIST cuff pressure noted. Pt placed on vent with noted settings by Dr. Vigil. Vent alarms are set and audible with BVM by bedside. Vent is plugged into red outlet. No respiratory distress noted at this time. Addendum: 08/02/18 at 1626 by YUSUF THAYER RT Amended: Links added.
[2018-08-02] MEDS ORDERED: PROPOFOL 10MG/ML 50ML 50 ML IV PRN (15:10)
--- NOTE | 2018-08-02 15:10 | NUR ---
RN NOTES PT IS INTUBATED , OG TUBE INSERTED PER DR PRINCE ORDER , PLACEMENT VERIFIED BY 2 NURSES, CONTINUE TO MONITOR .
[2018-08-02] MEDS: PROPOFOL 10 MG/ML IV PRN (15:57)
[2018-08-02] MEDS ORDERED: ETOMIDATE 2 MG/ML VIAL IV ONE (16:48)
[2018-08-02] MEDS ORDERED: ROCURONIUM BROMIDE 50 MG/5 ML IV ONE (16:48)
--- NOTE | 2018-08-02 18:00 | NUR ---
RN NOTES PT INTUBATED, TOLEANG VENT SETTING WELL , O2 SAT 100%, PT RECEIVED 2 UNITS OF PRBC ON THIS SHIFT, OG TUBE INTACT, SR UPx3, BED LOCKED AND IN LOWEST POSITION, WILL ENDOSE TO DOT ETCHER NURSE FOR CONTINUITY OF CARE .
[2018-08-02 18:15] LABS: ABG BASE EXCESS -5.5 mmol/L; ABG OXYGEN SATURATION 96.1 % (92.0-98.5); ABG PO2 96.7 mmHg (75.0-100.0); AaDO2 220.4 mmHg; COHb 1.1 % (0.5-1.5); MetHb 0.9 % (0.0-1.5); O2Hb 94.2 % (94.0-97.0); PEEP,BG 0 cm H2O; SITE, ABG Left Brachial; VT, ABG 550 mL
--- NOTE | 2018-08-02 19:54 | NUR ---
IN MOLD COATER INITIAL NOTE RECEIVED PT, SEDATED, MAINTAINED ON VENT, TV 550, AC 16, FIO2 50, S/P INTUBATION 7.0 ETT @ 22 CM LIP, ON PROPOFOL @ 16 ON GOING DAILYSIS, BP UNSTABLE 95/55, LEVO RUNNING @ 20, WITH BILAT' WRIST RESTRAIN, RELEASED ORDERED, PT CLEAN AND DRY, APPEARS COMFORTABLE, WILL CONT' TO MONITOR PT.
[2018-08-02 20:30] LABS: HEMOGLOBIN 7.5 g/dL (11.5-14.8)
[2018-08-02] MEDS: ATORVASTATIN 10 MG TABLET PO SCH (21:25)
[2018-08-03] VITALS (120 sets, daily range): BP systolic 38–239; BP diastolic 18–94
[2018-08-03] MEDS: LEVALBUTEROL HCL NEB 1.25 MG/0.5 ML VIAL.NEB IH SCH ×4 (00:33→23:30)
[2018-08-03] MEDS: BLOOD SUGAR DIAGNOSTIC 1 EACH STRIP IN SCH ×4 (00:34→17:57)
[2018-08-03] MEDS: INSULIN REGULAR, HUMAN 100 UNIT/ML 3 ML VIAL SQ PRN ×4 (00:40→17:59)
[2018-08-03] MEDS: PROPOFOL 10 MG/ML IV PRN ×4 (01:11→21:13)
[2018-08-03 01:32] LABS: HEMOGLOBIN 7.1 g/dL (11.5-14.8)
[2018-08-03] MEDS: PIPERACILLIN /TAZOBACTAM 2.25 G in IV D5W 50 ML IV SCH ×3 (04:33→21:12)
--- NOTE | 2018-08-03 06:09 | NUR ---
IT ANALYST closing NOTE endorsed PT, SEDATED, MAINTAINED ON VENT, TV 550, AC 16, FIO2 50, S/P INTUBATION 7.0 ETT @ 22 CM LIP, ON PROPOFOL @ 16 ON GOING DAILYSIS, BP UNSTABLE 95/55, LEVO RUNNING @ 20, WITH BILAT' WRIST RESTRAIN, RELEASED ORDERED, PT CLEAN AND DRY, APPEARS COMFORTABLE, WILL CONT' TO MONITOR PT.
--- NOTE | 2018-08-03 07:05 | NUR ---
CHARM FILTER OPERATOR HELPER INITIAL NOTES RECEIVED PT IN BED, SEDATED ON DIPRIVAN DRIP AT 15 MCG/KG/MIN. PT INTUBATED AND ON MECHANICAL VENT. VENT SETTINGS ASSESSED FOR ACCURACY. PT TOLERATING SETTINGS WELL. NO SOB OR ACUTE SIGNS OF DISTRESS NOTED. BREATHING IS EVEN AND UNLABORED. PT AV PACING ON MONITOR,. RIGHT FEMORAL TRIPLE LUMEN CATH NOTED OT BE PATENT AND INTACT. NO REDNESS OR SIGNS OF INFILTRATION NOTED. PT ALSO RECEIVING LEV DRIP AT 28MCG/MIN. PT HAD ONE LARGE BLOODY STOOL REPORTED BY NIGHTSHIFT RN WITH A CURRENT H/H OF 7.1. NO ORDERS TO TRANSFUSE AT THIS TIME. WILL CONTINUE TO MONITOR FOR ANY FURTHER SIGNS OF BLEEDING. BED IN LOW LOCKED POSITION, SIDE RAILS UP X3, BILATERAL SOFT WRIST RESTRAINTS NOTED. GOOD PERIPHERAL PULSES, COLOR, AND CAP REFILL NOTED. WILL CONTINUE TO MONITOR
[2018-08-03 07:29] LABS: ABG OXYGEN SATURATION 98.6 % (92.0-98.5); ABG PCO2 32.2 mmHg (35.0-45.0); ABG PH 7.478 (7.350-7.450); ABG PO2 170.6 mmHg (75.0-100.0); AaDO2 149.7 mmHg; COHb 0.3 % (0.5-1.5); MetHb 1.2 % (0.0-1.5); O2Hb 97.1 % (94.0-97.0); SITE, ABG Left Femoral; VENT MODE, BG A/C; VT, ABG 550 mL
[2018-08-03] MEDS: LACTOBACILLUS RHAMNOSUS GG 1 EACH CAP.SPRINK PO SCH ×2 (08:40→17:59)
[2018-08-03] MEDS: NOREPINEPHRINE 16 MG in IV D5W 500 ML IV PRN ×2 (08:40→18:13)
[2018-08-03] MEDS: PANTOPRAZOLE 40 MG VIAL IV SCH ×2 (08:40→17:59)
[2018-08-03] MEDS: SERTRALINE HCL 50 MG TABLET PO SCH (08:40)
[2018-08-03] MEDS: LEVOTHYROXINE SODIUM 75 MCG TABLET PO SCH (08:40)
[2018-08-03] MEDS: LIDOCAINE 5% (PATCH) 1 EA PATCH TP SCH (08:40)
[2018-08-03] MEDS: MIDODRINE HCL (5MG) 5 MG TABLET PO SCH ×3 (08:40→17:57)
[2018-08-03] MEDS: GABAPENTIN 100 MG CAPSULE PO SCH ×3 (08:40→17:59)
[2018-08-03] MEDS: SUCRALFATE 1 G/10 ML UDC GT SCH ×4 (08:41→21:12)
[2018-08-03] MEDS: TRAMADOL HCL 50 MG TABLET PO SCH ×3 (08:52→16:45)
[2018-08-03] MEDS: PROSOURCE / PROSTAT (PYXIS) 30 ML UDC PO SCH ×2 (08:52→18:03)
[2018-08-03] MEDS: SEVELAMER CARBONATE 800 MG TABLET PO SCH ×3 (08:52→17:57)
[2018-08-03] MEDS: CARVEDILOL 3.125 MG TABLET PO SCH ×2 (09:00→17:00)
--- NOTE | 2018-08-03 09:51 | NUR ---
TONGUE BINDER NOTES: MD ROUNDING DR CAPELLAN AT BEDSIDE AND UPDATED ON PT'S CONDITION AND RECENT LABS. MD ALSO MADE AWARE THAT PT CONTINUES TO HAVE BLOODY STOOL. VERBAL ORDER OBTAINED TO TRANSFUSE 1UNIT OF PRBC
--- NOTE | 2018-08-03 11:40 | NUR ---
COMBATANT DIVER QUALIFIED NOTES: GI FOLLOWUP DR PRINCE CONTACTED IN REGARDS TO PT'S PERSISTENT BLOOD STOOL(S). MD ALSO MADE AWARE OF PT'S CURRENT H/H AND 1UNIT PRBC TRANSFUSION ORDER. ORDER OBTAINED BY MD TO REPEAT H/H TWO HRS AFTER TRANSFUSION. WILL NOTIFY MD OF RESULTS AND AWAIT FOR FURTHER ORDERS
[2018-08-03] MEDS: NEPRO VAN 237 ML CAN PO SCH (11:48)
[2018-08-03] MEDS ORDERED: Z GUARD REMEDY 2 OZ OINT TP PRN (12:30)
[2018-08-03 14:55] LABS: HEMOGLOBIN 8.8 g/dL (11.5-14.8)
--- NOTE | 2018-08-03 17:23 | NUR ---
COKE HANDLING SUPERVISOR NOTES: REEL ASSEMBLER F/U FRANCIS REEL ASSEMBLER WAS AT BEDSIDE AND MADE AWARE OF PT'S CONDITION, RECENT LAB WORK AND TRANSFUSION. VERBAL ORDER OBTAINED TO REPEAT PT'S H/H AT [address] ORDER FOR NM GI BLEED BLOOD LOSS ACUTE SCAN IF PT'S CONDITION PERMITS. REEL ASSEMBLER ALSO STATES THAT EGD/COLONOSCOPY IS ON STANDBY UNTIL 1999 H/H AND SCAN HAS RESULTED.
--- NOTE | 2018-08-03 17:55 | NUR ---
RT END OF THE SHIFT REPORT: PT. 78 Y OLD FEMALE REC. ORALLY INTUBATED ETT# 7.0 @ 22 CM LIP LINE, ON VENT WITH NOTED SETTINGS, PER DR. SELLERS ORDER. ABG DONE NO CHANGES ALARMS ARE SET AND FUNCTIONAL. EQUAL CHEST RISE NOTED, B/S RALES BILATERALLY. SUX'D FOR MINIMAL AMT. WHITE SECRETIONS. HME CHANGED AND SHAFT SINKER DONE. VENT PLUGGED TO RED OUTLETS. AMBU BAG REMAIN AT THE BEDSIDE. T/O DAY NO DISTRESS NOTED , AND CONTINUED TO MONITOR CLOSELY. PT. REMAIN STABLE REPORT WILL PASS TO PM SHIFT. Addendum: 08/03/18 at 1757 by LEXI BASHIR RT Amended: Links added.
--- NOTE | 2018-08-03 19:21 | NUR ---
MUSIC PROFESSOR CLOSING NOTES PT STABLE AT THIS TIME. VSS. PT REMAINS ON LEVO AT 22MCG/MIN AND DIPRIVAN AT 20MCG/KG/HR AND TOLERATING WELL. SE CONTINUES TOLERATING VENT SETTINGS WELL. PT S/P 1UNIT OF PRBC AND 1 UNIT OF PLASMA PER MD ORDER. PT TOLERATED TRANSFUSIONS WELL. NO REACTIONS NOTED. PT ALSO S/P HD. 1L REMOVED. SAFETY MEASURES REMAIN IN PLACE. BILATERAL RESTRAINTS RENEWED PER MD ORDER. PRN CARE RENDERED. PT REPOSITIONED AND TURNED PER PROTOCOL. ENDORSE TO NIGHTSHIFT RN FOR MARIANNA
--- NOTE | 2018-08-03 20:00 | NUR ---
RESIDENT PHYSICIAN NOTES RECEIVED CALL FROM FRANCIS PALACIOS NP. FRANCIS GIVEN UPDATE REGARDING REPORT OF BLOODY STOOL FROM DAY SHIFT NURSE, AND THAT BLOOD PRODUCT INFUSION COMPLETED @ 1914, WITH REPEAT CHECK FOR 2029. PER FRANCIS, ALSO ADD PT/INR AND PTT TO RECHECK H/H @ 2029, AND TO NOTIFY HER IMMEDIATELY WITH RESULTS. WILL MONITOR CLOSELY AND CARRY OUT ORDERS
--- NOTE | 2018-08-03 20:15 | NUR ---
RECEIVED PT INTUBATED 7.0 ETT SECURED AT 22CM AT THE LIP. BITE BLOCK IN PLACE. NO DISTRESS. TOLERATING VENT SETTINGS. SX'D FOR MOD AMT OF THICK WHITE SECRETIONS. VENT ALARMS SET AND AUDIBLE. AMBU BAG AT BEDSIDE. WILL CONTINUE TO MONITOR. Addendum: 08/03/18 at 2016 by DANNIELLE DELEON RT Amended: Links added.
[2018-08-03] MEDS: ATORVASTATIN 10 MG TABLET PO SCH (21:12)
--- NOTE | 2018-08-03 21:45 | NUR ---
PRINCIPAL LAW CLERK NOTES FRANCIS PALACIOS ENVIRONMENTAL PROTECTION GEOLOGIST NOTIFIED REGARDING LATEST LAB VALUES, H/H 8.0/24, INR 1.09, PATIENT WITH ANOTHER MODERATE EPISODE OF BLOODY STOOL, DARK RED IN COLOR. NO ORDER FOR FURTHER TRANSFUSION AT THIS TIME, BUT REPEAT H/H AT 0200 ON 08/04/18. FRANCIS ALSO WITH ORDER TO HAVE ALLEN SIGN CONSENT FOR COLONOSCOPY/EGD, AND WILL SCHEDULE FOR 0800 ON 08/04/2018
[2018-08-04] VITALS (106 sets, daily range): BP systolic 92–150; BP diastolic 40–72
[2018-08-04] MEDS: BLOOD SUGAR DIAGNOSTIC 1 EACH STRIP IN SCH ×4 (00:26→17:10)
[2018-08-04] MEDS: INSULIN REGULAR, HUMAN 100 UNIT/ML 3 ML VIAL SQ PRN ×4 (00:28→17:07)
[2018-08-04 02:25] LABS: HEMOGLOBIN 7.8 g/dL (11.5-14.8)
[2018-08-04] MEDS: PROPOFOL 10 MG/ML IV PRN ×2 (02:30→08:53)
[2018-08-04 02:33] LABS: CARBON DIOXIDE 29 mmol/L (21-32); CHLORIDE 104 mmol/L (98-107); CREATININE 4.1 mg/dL (0.6-1.3); GLUCOSE 238 mg/dL (74-106); POTASSIUM 3.7 mmol/L (3.5-5.1); SODIUM SERUM 140 mmol/L (136-145); UREA NITROGEN, BLOOD 34 mg/dL (7-18)
--- NOTE | 2018-08-04 03:00 | NUR ---
EMBOSSING CLERK NOTES REOEAT HGB RESULT 7.8. ER FRANCIS, NO NEW ORDERS AT THIS TIME. EXISTING ORDER FOR HGB RECHECK @ 0700.
[2018-08-04] MEDS: PIPERACILLIN /TAZOBACTAM 2.25 G in IV D5W 50 ML IV SCH ×3 (04:24→21:19)
--- NOTE | 2018-08-04 07:00 | NUR ---
RN NOTES RECEIVED PT ON BED,SEDATED ,INTUBATED, TOLERATING CURRENT VENT SETTING WELL, ON TELE AV PACING, HR IN 80'S. LEVO RUNNING AT 14MCG/MIN AND DIPRIVAN AT 35MCG/KG/MIN RUNNING VIA R FEMORAL TLC , SITE CLEAN, DRY AND INTACT, OG TUBE INTACT AND CLAMPED. SR UP x3, CALL LIGHT WITHIN EASY REACH, BED LOCKED AND IN LOWEST POSITION , CONTINUE TO MONITOR.
[2018-08-04] MEDS: LEVALBUTEROL HCL NEB 1.25 MG/0.5 ML VIAL.NEB IH SCH ×3 (07:17→23:30)
--- NOTE | 2018-08-04 07:44 | NUR ---
WOUND CARE CONSULT: PT PRESENTS WITH RECTAL BLEEDING AND GLUTEAL CREASE OPEN SKIN SECONDARY TO MOISTURE/INCONTINENCE. RECOMMENDATIONS MADE FOR SKIN CARE AND PROTECTION. DISCUSSED WITH NURSING STAFF. PT IS CURRENTLY NPO, INTUBATED AND IMMOBILE WITH MULTIPLE CO-MORBIDITIES INCLUDING PNEUMONIA, END STAGE RENAL FAILURE, ON HD WITH GI BLEEDING. WILL SEE PRN. WAITE IN AGREEMENT WITH PLAN OF CARE. PT ON [facility] BED. Addendum: 08/04/18 at 0750 by ANTONIO TIJERINA WNDNU Amended: Links added.
[2018-08-04] MEDS: SEVELAMER CARBONATE 800 MG TABLET PO SCH ×3 (08:00→17:10)
[2018-08-04] MEDS ORDERED: ANESTHESIA TRAY IN PYXIS 1 EA TRAY MC ONE (08:02)
[2018-08-04] MEDS: LEVOTHYROXINE SODIUM 75 MCG TABLET PO SCH (08:45)
[2018-08-04] MEDS: PANTOPRAZOLE 40 MG VIAL IV SCH ×2 (08:45→16:17)
[2018-08-04] MEDS: SUCRALFATE 1 G/10 ML UDC GT SCH ×4 (08:45→21:19)
[2018-08-04] MEDS: NOREPINEPHRINE 16 MG in IV D5W 500 ML IV PRN ×2 (08:57→19:15)
[2018-08-04] MEDS: MIDODRINE HCL (5MG) 5 MG TABLET PO SCH ×3 (09:00→16:17)
[2018-08-04] MEDS: LACTOBACILLUS RHAMNOSUS GG 1 EACH CAP.SPRINK PO SCH ×2 (09:00→16:18)
[2018-08-04] MEDS: PROSOURCE / PROSTAT (PYXIS) 30 ML UDC PO SCH ×2 (09:00→16:18)
[2018-08-04] MEDS: GABAPENTIN 100 MG CAPSULE PO SCH ×3 (09:00→16:18)
[2018-08-04] MEDS: TRAMADOL HCL 50 MG TABLET PO SCH ×3 (09:00→16:18)
--- NOTE | 2018-08-04 09:30 | NUR ---
RN NOTES PT HAVING EGD AND COLONOSCOPY AT THE BEDSIDE BY DR PRINCE .
[2018-08-04] MEDS ORDERED: GLUCAGON,HUMAN RECOMBINANT 1 MG/VIAL VIAL ONE (09:50)
--- NOTE | 2018-08-04 10:00 | NUR ---
RN NOTES NUCLEAR MED SCAN AND CT OF ABDOMEN POSTPONED PER DR SELLERS AT THIS TIME .
--- NOTE | 2018-08-04 10:01 | NUR ---
SPOKE WITH RN. PATIENT HAVING EGD DONE CURRENTLY. RN WILL SPEAK WITH MD PRIOR TO CT ABDOMEN PELVIS WO.
[2018-08-04] MEDS: LIDOCAINE 5% (PATCH) 1 EA PATCH TP SCH (10:10)
[2018-08-04] MEDS: SERTRALINE HCL 50 MG TABLET PO SCH (10:48)
[2018-08-04] MEDS: CARVEDILOL 3.125 MG TABLET PO SCH ×2 (10:48→16:18)
[2018-08-04] MEDS ORDERED: GLUCAGON,HUMAN RECOMBINANT 1 MG/VIAL VIAL IV ONE (11:00)
[2018-08-04] MEDS ORDERED: PROPOFOL 100 ML IV PRN (12:00)
[2018-08-04] MEDS: NEPRO VAN 237 ML CAN PO SCH (12:15)
[2018-08-04] MEDS: Z GUARD REMEDY 2 OZ OINT TP PRN (12:31)
[2018-08-04] MEDS: PROPOFOL 100 ML IV PRN ×2 (13:58→17:04)
--- NOTE | 2018-08-04 14:00 | NUR ---
RN NOTES NO MORE BLOODY STOOL NOTED, CONTINUE TO MONITOR
--- NOTE | 2018-08-04 18:20 | NUR ---
RT NOTE PT REMAINS MECHANICALLY VENTILATED VIA 7.0 ETT 22 CM AT LIP. CUFF INFLATED. ETT SECURE. VENT SETTINGS PRESCRIBED. ALARMS SET PER PROTOCOL AND AUDIBLE. VENT PLUGGED IN TO RED OUTLET. AMBU BAG AT BED SIDE. NO DISTRESS NOTED AT MOMENT. Addendum: 08/04/18 at 1822 by SHANTELLE CHOUDHURY RT Amended: Links added.
--- NOTE | 2018-08-04 18:35 | NUR ---
RN NOTES NO DISTRESS NOTED, ORAL CARE DONE, NO BLOOD STOOL NOTED, WILL ENDORSE TO STREET LIGHT SERVICER SUPERVISOR NURSE FOR CONTINUITY OF CARE .
--- NOTE | 2018-08-04 20:30 | NUR ---
pt rec'd orally intubated via ETT Sz 7.0 secured at 22 CM @ the lip line. pt on [facility] vent on ac mode settings as charted. bite block in place. no resp distress or sob noted. LEAD JAVA DEVELOPER ARCHITECT cuff pressure noted. sx'd for small amt of white secretions. alarms are set and audible. vent plugged into red outlet. ambu bag bedside. will continue to monitor. Addendum: 08/04/18 at 2030 by JACKY HOROWITZ RT Amended: Links added.
--- NOTE | 2018-08-04 21:00 | NUR ---
COMPANY DOCTOR NOTES - CASE MANAGEMENT & LINEN CONTROLLER SINCE ADMISSION ON 07/28/18, PATIENT THOUGHT TO HAVE NO FAMILY MEMBERS INVOLVED IN CARE, DESPITE MULTIPLE ATTEMPTS TO REACH OUT. HOWEVER, TONIGHT, MULTIPLE FAMILY MEMBERS VISITING, ALL CLAIMING TO HAVE RIGHTS FOR DECISION MAKING POWER FOR THIS PATIENT. NISTANLEY GÓMEZ [phone] AND SISTER KALIA MIRANDA [phone]. ADVANCED DIRECTIVE FLAGGED IN CHART, WITH PHONE NUMBER FOR STEFANIE BENEDICT [phone] <CELL [phone], WHOM IS THE APPARENT DECISION MAKER FOR THE PATIENT. FAMILY MEMBERS UPDATED REGARDING PLAN OF CARE, VERBALIZING UNDERSTANDING, ALL QUESTIONS ANSWERED ABLE TO PATIENT'S FAMILY SATISFACTION. FAMILY MEMBERS (STATED ABOVE) REQUESTING FOR CLARIFICATION FROM CM AND SS REGARDING WHOM INFORMATION CAN BE GIVEN TO, AND WHO IS/ISNT ALLOWED TO VISIT.
[2018-08-04] MEDS: ATORVASTATIN 10 MG TABLET PO SCH (21:19)
[2018-08-05] VITALS (102 sets, daily range): BP systolic 86–127; BP diastolic 41–63
[2018-08-05] MEDS: BLOOD SUGAR DIAGNOSTIC 1 EACH STRIP IN SCH ×5 (01:54→23:21)
[2018-08-05] MEDS: INSULIN REGULAR, HUMAN 100 UNIT/ML 3 ML VIAL SQ PRN ×5 (01:55→23:25)
[2018-08-05] MEDS: PIPERACILLIN /TAZOBACTAM 2.25 G in IV D5W 50 ML IV SCH ×3 (05:50→21:43)
--- NOTE | 2018-08-05 06:00 | NUR ---
OPERATIONS RESEARCH DIRECTOR CLOSING NOTES PATIENT RESTING IN BED, SEDATED ON DIPRIVAN @ 30 MCG/KG/MIN. CONTINUES ON LEVOPHED GTT @ 10 MCG/MIN. WILL ENDORSE THE PATIENT TO THE AM SHIFT NURSE FOR CONTINUITY OF CARE. AIRCRAFT MANAGER AND CASE MANAGEMENT CONSULTS ORDERED TO AID WITH MULTIPLE FAMILY MEMBERS CONCERNS. VIDEO GAME PRODUCER TOM NOTIFIED REGARDING SS AND CM CONSULTS
--- NOTE | 2018-08-05 07:20 | NUR ---
RN NOTES RECEIVED PT ON BED, SEDATED, INTUBATED, ORAL AND ET SUCTIONING DONE , ON PROPOFOL AND LEVO GTT, ON TELE AV PACING HR IN 80'S, OGT CLAMPED AND INTACT, R FEMORAL TLC SITE CLEAN , DRY AND INTACT, SR UP x3, CALL LIGHT WITHIN EASY REACH, BED LOCKED AND IN LOWEST POSITION, CONTINUE TO MONITOR .
[2018-08-05] MEDS: PROPOFOL 100 ML IV PRN ×3 (07:28→17:49)
[2018-08-05 07:44] LABS: BASOPHILS # (AUTO) 0.1 /CMM (0.0-0.2); BASOPHILS % (AUTO) 0.6 % (0.0-2.0); HEMATOCRIT 23 % (33-45); HEMOGLOBIN 7.6 g/dL (11.5-14.8); LYMPHOCYTES # (AUTO) 0.8 /CMM (0.8-4.8); LYMPHOCYTES % (AUTO) 6.1 % (20.0-44.0); MEAN CORPUSCULAR HGB CONC 33 g/dl (31.0-36.0); MEAN CORPUSCULAR VOLUME 91 fL (82-100); MONOCYTES % (AUTO) 7.9 % (2.0-12.0); NEUTROPHILS # (AUTO) 10.9 /CMM (1.8-8.9); NEUTROPHILS % (AUTO) 83.4 % (43.0-81.0); PLATELET COUNT (AUTO) 173 /CMM (150-450); RED BLOOD CELL COUNT(AUTO) 2.56 MIL/uL (4.0-5.2)
[2018-08-05 07:53] LABS: CALCIUM, SERUM 8.6 mg/dL (8.5-10.1); CARBON DIOXIDE 24 mmol/L (21-32); CHLORIDE 98 mmol/L (98-107); CREATININE 5.2 mg/dL (0.6-1.3); GLUCOSE 175 mg/dL (74-106); SODIUM SERUM 135 mmol/L (136-145); UREA NITROGEN, BLOOD 42 mg/dL (7-18)
[2018-08-05] MEDS: LEVALBUTEROL HCL NEB 1.25 MG/0.5 ML VIAL.NEB IH SCH ×3 (07:56→23:31)
[2018-08-05] MEDS: SUCRALFATE 1 G/10 ML UDC GT SCH ×4 (08:26→21:43)
[2018-08-05] MEDS: MIDODRINE HCL (5MG) 5 MG TABLET PO SCH ×3 (08:26→16:28)
[2018-08-05] MEDS: LIDOCAINE 5% (PATCH) 1 EA PATCH TP SCH (08:26)
[2018-08-05] MEDS: LACTOBACILLUS RHAMNOSUS GG 1 EACH CAP.SPRINK PO SCH ×2 (08:26→16:27)
[2018-08-05] MEDS: SERTRALINE HCL 50 MG TABLET PO SCH (08:27)
[2018-08-05] MEDS: PANTOPRAZOLE 40 MG VIAL IV SCH ×2 (08:27→16:28)
[2018-08-05] MEDS: TRAMADOL HCL 50 MG TABLET PO SCH ×3 (08:27→16:28)
[2018-08-05] MEDS: SEVELAMER CARBONATE 800 MG TABLET PO SCH ×3 (08:27→17:01)
[2018-08-05] MEDS: LEVOTHYROXINE SODIUM 75 MCG TABLET PO SCH (08:27)
[2018-08-05] MEDS: GABAPENTIN 100 MG CAPSULE PO SCH ×3 (08:28→16:27)
[2018-08-05] MEDS: PROSOURCE / PROSTAT (PYXIS) 30 ML UDC PO SCH ×2 (08:29→16:40)
[2018-08-05] MEDS: CARVEDILOL 3.125 MG TABLET PO SCH ×2 (09:00→16:29)
[2018-08-05] MEDS ORDERED: EPOETIN ALFA (10,000 UNIT) 10,000 UNIT/ML VIAL IV ONE (12:00)
--- NOTE | 2018-08-05 12:00 | NUR ---
RN NOTES ORAL CARE DONE, VSS STABLE, NO ACTIVE BLEEDING NOTED, CONTINUE TO MONITOR .
[2018-08-05] MEDS: NOREPINEPHRINE 16 MG in IV D5W 500 ML IV PRN (12:02)
[2018-08-05] MEDS: NEPRO VAN 237 ML CAN PO SCH (12:15)
[2018-08-05 13:08] LABS: HEMOGLOBIN 7.7 g/dL (11.5-14.8)
[2018-08-05] MEDS ORDERED: NEPRO 1,000 ML BOTTLE GT PRN (14:00)
--- NOTE | 2018-08-05 14:00 | NUR ---
RN NOTES VSS STABLE, CONTINUE TO MONITOR.
--- NOTE | 2018-08-05 14:47 | NUR ---
Social service consult requested by ORTHOPEDICS PEDIATRIC PHYSICIAN Laci Millard for clarification of decision maker for patient. farmworker rice reviewed documentation in case, pt has a Health Care Agent document that has been notarized in 2013 initiating Arabella Delgadillo as her primary decision maker. farmworker rice reached out to Arabella ([phone]) who states that she is the decision maker however she also gives permission for pts niece Akil Isabel ([phone]) and Jannethenecourtney grandmother Eryn Del Rio ([phone]) to be involved in pts case and updated on pts status and care. Pt lived with her niece and grandmother. farmworker rice reached out to Akil and updated her on conversation with pts primary agent Arabella Lopez. Arabella Lopez also stated that paperwork that indicates a second and third agent (Angela and Candice) are not involved in pts care anymore. farmworker rice spoke with pts RN and provided aforementioned information.
--- NOTE | 2018-08-05 18:03 | NUR ---
RT END OF THE SHIFT REPORT, PT. 78 Y OLD FEMALE REC. 0700 AM NONE RESPONSIVE, SEDATED. PT. IS ORALLY INTUBATED ETT#7.0 @ 22 CM LIP LINE ON MECHANICAL VENT. WITH NOTED AC MODE. NO RESP DISTRESS NOR SOB NOTED. TX'S GIVE INLINE Q8 NO ADVERSE REACTION NOTED. EQUAL CHEST RISE NOTED, B/S RALES BILATERALLY SUX'D FOR MOD. AMT. YELLOW SECRETIONS. ALARMS ARE SET AND FUNCTIONAL. VENT PLUGGED INTO RED OUTLET. HME CHANGED PRINTED CIRCUIT BOARDS BEVELER DONE. AMBU BAG REMAIN AT THE BEDSIDE. WILL CONTINUE TO MONITOR CLOSELY AND REPORT WILL PASS TO PM SHIFT. Addendum: 08/05/18 at 1805 by LEXI BASHIR RT Amended: Links added.
--- NOTE | 2018-08-05 18:29 | NUR ---
RN NOTES NO ACTIVE BLEEDING NOTED , PT STILL ON LEVO AND PROPOFOL GTT , TOLERATING OG TUBE FEEDING AT 10CC/HR WELL, NO RESIDUAL NOTED, SR UPx3, NO DISTRESS NOTED, WILL ENDORSE TO SPIRAL WEAVER NURSE FOR CONTINUITY OF CARE.
[2018-08-05] MEDS: ATORVASTATIN 10 MG TABLET PO SCH (21:43)
[2018-08-06] VITALS (102 sets, daily range): BP systolic 66–121; BP diastolic 20–62
[2018-08-06] MEDS: PROPOFOL 100 ML IV PRN ×2 (00:55→05:46)
[2018-08-06] MEDS: PIPERACILLIN /TAZOBACTAM 2.25 G in IV D5W 50 ML IV SCH ×3 (05:05→21:20)
[2018-08-06 05:06] LABS: BASOPHILS % (AUTO) 0.4 % (0.0-2.0); EOSINOPHILS % (AUTO) 2.4 % (0.0-6.0); HEMATOCRIT 25 % (33-45); HEMOGLOBIN 8.5 g/dL (11.5-14.8); LYMPHOCYTES # (AUTO) 0.9 /CMM (0.8-4.8); LYMPHOCYTES % (AUTO) 9.4 % (20.0-44.0); MEAN CORPUSCULAR HGB CONC 34 g/dl (31.0-36.0); MEAN CORPUSCULAR VOLUME 92 fL (82-100); MONOCYTES # (AUTO) 0.9 /CMM (0.1-1.30); MONOCYTES % (AUTO) 8.7 % (2.0-12.0); NEUTROPHILS # (AUTO) 7.9 /CMM (1.8-8.9); NEUTROPHILS % (AUTO) 79.1 % (43.0-81.0); PLATELET COUNT (AUTO) 196 /CMM (150-450); RED BLOOD CELL COUNT(AUTO) 2.69 MIL/uL (4.0-5.2)
[2018-08-06 05:21] LABS: ALANINE AMINOTRANSFERASE 172 U/L (12-78); ALBUMIN 1.7 g/dL (3.4-5.0); ALKALINE PHOSPHATASE 122 U/L (46-116); ASPARTATE AMINOTRANSFERASE 83 U/L (15-37); BILIRUBIN,TOTAL 0.5 mg/dL (0.2-1.0); CALCIUM, SERUM 8.3 mg/dL (8.5-10.1); CARBON DIOXIDE 30 mmol/L (21-32); CHLORIDE 103 mmol/L (98-107); CREATININE 3.9 mg/dL (0.6-1.3); GLUCOSE 158 mg/dL (74-106); MAGNESIUM 2.1 mg/dL (1.8-2.4); PHOSPHORUS 3.8 mg/dL (2.5-4.9); POTASSIUM 3.8 mmol/L (3.5-5.1); SODIUM SERUM 140 mmol/L (136-145); TOTAL PROTEIN, SERUM 5.2 g/dL (6.4-8.2); UREA NITROGEN, BLOOD 28 mg/dL (7-18)
[2018-08-06] MEDS: BLOOD SUGAR DIAGNOSTIC 1 EACH STRIP IN SCH ×3 (05:32→17:42)
[2018-08-06] MEDS: INSULIN REGULAR, HUMAN 100 UNIT/ML 3 ML VIAL SQ PRN ×4 (05:34→23:24)
[2018-08-06] MEDS: LEVALBUTEROL HCL NEB 1.25 MG/0.5 ML VIAL.NEB IH SCH ×3 (07:31→22:51)
[2018-08-06] MEDS: SEVELAMER CARBONATE 800 MG TABLET PO SCH ×3 (07:37→17:32)
[2018-08-06] MEDS: LEVOTHYROXINE SODIUM 75 MCG TABLET PO SCH (07:38)
[2018-08-06] MEDS: SUCRALFATE 1 G/10 ML UDC GT SCH ×4 (07:38→21:20)
[2018-08-06] MEDS: Z GUARD REMEDY 2 OZ OINT TP PRN (07:39)
--- NOTE | 2018-08-06 08:15 | NUR ---
vent changes below made as order for weaning trial: simv 4 vt 550 ps 12 peep 5 fio2 50% Addendum: 08/06/18 at 0818 by JONH HEMPHILL RT Amended: Links added.
[2018-08-06] MEDS: MIDODRINE HCL (5MG) 5 MG TABLET PO SCH ×3 (08:26→17:32)
[2018-08-06] MEDS: LACTOBACILLUS RHAMNOSUS GG 1 EACH CAP.SPRINK PO SCH ×2 (08:26→17:32)
[2018-08-06] MEDS: LIDOCAINE 5% (PATCH) 1 EA PATCH TP SCH (08:26)
[2018-08-06] MEDS: VIT B CMPLX 3/FA/VIT C/BIOTIN 1 TAB TABLET PO SCH (08:27)
[2018-08-06] MEDS: GABAPENTIN 100 MG CAPSULE PO SCH ×3 (08:27→17:33)
[2018-08-06] MEDS: PANTOPRAZOLE 40 MG VIAL IV SCH ×2 (08:27→17:32)
[2018-08-06] MEDS: PROSOURCE / PROSTAT (PYXIS) 30 ML UDC PO SCH ×2 (08:27→17:33)
[2018-08-06] MEDS: TRAMADOL HCL 50 MG TABLET PO SCH ×3 (08:27→17:33)
[2018-08-06] MEDS: SERTRALINE HCL 50 MG TABLET PO SCH (08:27)
[2018-08-06 09:05] LABS: ABG BASE EXCESS 0.9 mmol/L; ABG OXYGEN SATURATION 98.8 % (92.0-98.5); ABG PCO2 35.8 mmHg (35.0-45.0); ABG PH 7.456 (7.350-7.450); ABG PO2 175.5 mmHg (75.0-100.0); AaDO2 140.7 mmHg; COHb 0.3 % (0.5-1.5); MetHb 0.9 % (0.0-1.5); O2Hb 97.6 % (94.0-97.0); PEEP,BG 5 cm H2O; SITE, ABG Left Brachial; VENT MODE, BG SIMV 4/ PS 12; VT, ABG 550 mL
--- NOTE | 2018-08-06 10:01 | NUR ---
PATIENT STILL UNSTABLE FOR CT ABDOMEN PELVIS WO
--- NOTE | 2018-08-06 10:10 | NUR ---
PT. IS AWAKE AND FOLLOW COMMANDS EXTUBATED ORDER AND PLACED ON 2 LPM O2 FLOW VIA NASAL CANNULA. SPO2 POST EXTUBATED BELOW: SPO2 95% HR 77 - 81 BPM RR 18 TO 22 BPM Addendum: 08/06/18 at 1022 by JONH HEMPHILL RT Amended: Links added.
[2018-08-06] MEDS: NEPRO VAN 237 ML CAN PO SCH (11:57)
[2018-08-06] MEDS: NOREPINEPHRINE 16 MG in IV D5W 500 ML IV PRN ×2 (12:11→12:48)
--- NOTE | 2018-08-06 19:00 | NUR ---
RN CLOSING NOTES: 0815H Pt placed on SIMV mode as ordered. 1010H Pt extubated per Dr. Vigil's order (ABG results relayed to c/o RT). No significant changes noted w/in shift. Tolerating NC at 2lpm, sating at 100%. SR on telemonitor. R femoral TLC kept patent & intact w/ Levophed Drip x 12 mcg infusing well, no s/sx of infection/infiltration noted. R arm precaution observed at all times d/t SHANTI AVF. Safety precaution kept in place at all times w/ bed in lowest & locked pos. Call light placed w/in reach. Endorsed to PM RN for MARIANNA.
--- NOTE | 2018-08-06 20:19 | NUR ---
PAYROLL REPRESENTATIVE OPENING NOTES RECEIVED REPORT RECEIVED FROM ENID WINKLER. BREATHING EVEN & UNLABORED, TOLERATING O2 @ 2LPM VIA NC. ON TELE W/ AV PACING, HR 81. NO RESPIRATORY OR CARDIAC DISTRESS NOTED. RIGHT FEMORAL TRIPLE LUMEN CATH INTACT & PATENT W/ DRESSING CDI & ONGOING TITRATION OF LEVOPHED DRIP INFUSING WELL 12 MCG/HR. DENIES ANY PAIN OR DISCOMFORT @ THIS TIME. SAFETY MEASURES IN PLACE W/ SIDE RAILS UP & BED ALARM ON. WILL CONTINUE TO MONITOR CLOSELY.
[2018-08-06] MEDS: ATORVASTATIN 10 MG TABLET PO SCH (21:20)
[2018-08-07] VITALS (81 sets, daily range): BP systolic 78–128; BP diastolic 31–96
[2018-08-07] MEDS: BLOOD SUGAR DIAGNOSTIC 1 EACH STRIP IN SCH ×4 (00:18→18:31)
[2018-08-07 04:36] LABS: BASOPHILS # (AUTO) 0.1 /CMM (0.0-0.2); BASOPHILS % (AUTO) 0.6 % (0.0-2.0); EOSINOPHILS % (AUTO) 3.4 % (0.0-6.0); HEMATOCRIT 23 % (33-45); HEMOGLOBIN 7.6 g/dL (11.5-14.8); LYMPHOCYTES # (AUTO) 0.8 /CMM (0.8-4.8); LYMPHOCYTES % (AUTO) 7.1 % (20.0-44.0); MEAN CORPUSCULAR HGB CONC 33 g/dl (31.0-36.0); MEAN CORPUSCULAR VOLUME 95 fL (82-100); MONOCYTES # (AUTO) 0.9 /CMM (0.1-1.30); MONOCYTES % (AUTO) 8.1 % (2.0-12.0); NEUTROPHILS % (AUTO) 80.8 % (43.0-81.0); PLATELET COUNT (AUTO) 188 /CMM (150-450); RED BLOOD CELL COUNT(AUTO) 2.43 MIL/uL (4.0-5.2); WHITE BLOOD COUNT (AUTO) 11.1 K/uL (4.3-11.0)
[2018-08-07 05:00] LABS: ALANINE AMINOTRANSFERASE 133 U/L (12-78); ALBUMIN 1.8 g/dL (3.4-5.0); ALKALINE PHOSPHATASE 120 U/L (46-116); ASPARTATE AMINOTRANSFERASE 56 U/L (15-37); BILIRUBIN,TOTAL 0.7 mg/dL (0.2-1.0); CALCIUM, SERUM 8.6 mg/dL (8.5-10.1); CARBON DIOXIDE 30 mmol/L (21-32); CHLORIDE 100 mmol/L (98-107); CREATININE 5.1 mg/dL (0.6-1.3); GLUCOSE 171 mg/dL (74-106); MAGNESIUM 2.2 mg/dL (1.8-2.4); PHOSPHORUS 6.3 mg/dL (2.5-4.9); SODIUM SERUM 137 mmol/L (136-145); TOTAL PROTEIN, SERUM 5.4 g/dL (6.4-8.2); UREA NITROGEN, BLOOD 32 mg/dL (7-18)
[2018-08-07] MEDS: PIPERACILLIN /TAZOBACTAM 2.25 G in IV D5W 50 ML IV SCH ×3 (05:18→20:50)
[2018-08-07] MEDS: INSULIN REGULAR, HUMAN 100 UNIT/ML 3 ML VIAL SQ PRN ×3 (05:27→18:36)
[2018-08-07] MEDS: LEVALBUTEROL HCL NEB 1.25 MG/0.5 ML VIAL.NEB IH SCH ×3 (07:26→23:55)
[2018-08-07] MEDS: SEVELAMER CARBONATE 800 MG TABLET PO SCH ×3 (08:00→18:00)
--- NOTE | 2018-08-07 08:00 | NUR ---
RN Note: Patient received alert awake oriented x 2 with periods of forgetfulness, confusion. On 2 LPM O2 via NC, no breathing distress noted. Denies chest pain/discomfort. On Levo drip at 12mcg at this time to maintain SBP >90. Aspiration precautions observed. Safety measures observed. Continue with plan of care.
[2018-08-07] MEDS: LIDOCAINE 5% (PATCH) 1 EA PATCH TP SCH (08:53)
[2018-08-07] MEDS: HYDROCORTISONE SOD SUCCINATE 100 MG/2 ML VIAL IV SCH ×3 (08:54→18:31)
[2018-08-07] MEDS: PANTOPRAZOLE 40 MG VIAL IV SCH ×2 (08:54→18:31)
[2018-08-07] MEDS: VIT B CMPLX 3/FA/VIT C/BIOTIN 1 TAB TABLET PO SCH (08:54)
[2018-08-07] MEDS: GABAPENTIN 100 MG CAPSULE PO SCH ×3 (08:54→18:35)
[2018-08-07] MEDS: LACTOBACILLUS RHAMNOSUS GG 1 EACH CAP.SPRINK PO SCH ×2 (08:54→18:31)
[2018-08-07] MEDS: MIDODRINE HCL (5MG) 5 MG TABLET PO SCH ×3 (08:54→18:31)
[2018-08-07] MEDS: TRAMADOL HCL 50 MG TABLET PO SCH ×3 (08:55→18:31)
[2018-08-07] MEDS: SERTRALINE HCL 50 MG TABLET PO SCH (08:55)
[2018-08-07] MEDS: SUCRALFATE 1 G/10 ML UDC GT SCH ×4 (08:58→22:38)
[2018-08-07] MEDS: PROSOURCE / PROSTAT (PYXIS) 30 ML UDC PO SCH ×2 (08:58→17:00)
[2018-08-07] MEDS: LEVOTHYROXINE SODIUM 75 MCG TABLET PO SCH (08:58)
[2018-08-07] MEDS: NOREPINEPHRINE 16 MG in IV D5W 500 ML IV PRN (09:04)
[2018-08-07] MEDS: NEPRO VAN 237 ML CAN PO SCH (12:15)
[2018-08-07] MEDS: FLUDROCORTISONE 0.1 MG TABLET PO SCH ×2 (12:45→18:31)
--- NOTE | 2018-08-07 19:37 | NUR ---
RN NOTE: NO SIGNIFICANT CHANGES NOTED DURING SHIFT. REPORT GIVEN TO PATROL COMMANDER RN FOR CONTINUITY OF CARE.
--- NOTE | 2018-08-07 19:45 | NUR ---
ICU/COMPOUNDING ASSISTANT RECEIVED REPORT FROM DAY NURSE. SEE FLOWSHEET FOR ASSESSMENT ALONG WITH ALL SKIN ISSUES WHICH ARE ADDRESSES AND EACH INTERVENTIONS TO THEM. PT CURRENTLY HAS NO IVF,BUT DOES HAS IVPB. PT IS ALERT X 2. PT HAS N/C AT 2 LITERS , WITH SATURATION AT 99-100%. PT WS TURNED AND REPOSITIONED FOR COMFORT AND CARE. WILL CONTINUE TO MONITOR THIS PT.NO ACUTE DISTRESS SEEN AT THIS TIME.
--- NOTE | 2018-08-07 21:15 | NUR ---
ICU/MUD WORKER HD COMPLETED AT THIS TIME, 1 LITER WAS TAKEN OFF.
--- NOTE | 2018-08-07 22:20 | NUR ---
ICU/HEATING AND VENTILATING WORKER PT WAS THEN TURNED AND REPOSITIONED FOR COMFORT AND CARE. ALSO AT THIS TIME PT WAS CLEAN UP FROM HAVING A LARGE BM. PT TOLERATED THIS WELL.WILL CONTINUE TO MONITOR THIS PT. NO ACUTE DISTRESS SEEN AT THIS TIME.
[2018-08-07] MEDS: ATORVASTATIN 10 MG TABLET PO SCH (22:38)
--- NOTE | 2018-08-07 23:00 | NUR ---
ICU/WASHHOUSE WORKER PT'S LEVO WAS DECREASED DOWN TO 10 FROM 12MCG, BY CHARGE NURSE DUE TO BLOOD PRESSURE BEING IN THE 110'S. WILL CONTINUE TO MONITOR THIS PT'S BP. CALL LIGHT WITHIN REACH.
[2018-08-08] VITALS (33 sets, daily range): BP systolic 86–136; BP diastolic 42–77
--- NOTE | 2018-08-08 00:20 | NUR ---
ICU/VIDEO PHOTOGRAPHER MIDNIGHT BLOOD SUGAR IS 196, THERE IS 3 UNITS OF REGULAR COVERAGE FOR THIS. WILL CONTINUE TO MONITOR THIS PT'S BLOOD SUGAR ORDERED BY MD AND HOSPITAL PROTOCOL. NO ACUTE DISTRESS SEEN AT THIS TIME. PT WAS TURNED AND REPOSITIONED FOR COMFORT AND CARE.
[2018-08-08] MEDS: BLOOD SUGAR DIAGNOSTIC 1 EACH STRIP IN SCH ×4 (00:59→18:30)
[2018-08-08] MEDS: FLUDROCORTISONE 0.1 MG TABLET PO SCH ×4 (00:59→17:11)
[2018-08-08] MEDS: INSULIN REGULAR, HUMAN 100 UNIT/ML 3 ML VIAL SQ PRN ×4 (01:01→18:40)
--- NOTE | 2018-08-08 01:10 | NUR ---
ICU/CONTAINER FILLER PT'S LEVO WAS DECREASED DOWN TO 8 FROM 10MCG, BY CHARGE NURSE DUE TO BLOOD PRESSURE BEING IN THE 130'S. WILL CONTINUE TO MONITOR THIS PT'S BP. CALL LIGHT WITHIN REACH. NO ACUTE DISTRESS SEEN AT THIS TIME.
--- NOTE | 2018-08-08 02:10 | NUR ---
ICU/WILDLIFE REFUGE SPECIALIST PT WAS GIVEN AM CARE, ALONG WITH ORAL CARE. PT TOLERATED HER OXYGEN N/C SETTINGS WITH SATURATION AT 98-99%. PT WAS TURNED AND REPOSITIONED FOR COMFORT AND CARE. NO ACUTE DISTRESS SEEN AT THIS TIME. PT APPEARS TO BE RESTING COMFORTABLE.
--- NOTE | 2018-08-08 04:50 | NUR ---
ICU/ACCREDITED FARM MANAGER PT WAS THEN TURNED AND REPOSITIONED FOR COMFORT AND CARE. PT TOLERATED THIS WELL.WILL CONTINUE TO MONITOR THIS PT. NO ACUTE DISTRESS SEEN AT THIS TIME.
[2018-08-08 04:54] LABS: BASOPHILS % (AUTO) 0.1 % (0.0-2.0); HEMATOCRIT 22 % (33-45); HEMOGLOBIN 7.4 g/dL (11.5-14.8); LYMPHOCYTES # (AUTO) 0.4 /CMM (0.8-4.8); LYMPHOCYTES % (AUTO) 3.5 % (20.0-44.0); MEAN CORPUSCULAR HGB CONC 34 g/dl (31.0-36.0); MEAN CORPUSCULAR VOLUME 95 fL (82-100); MONOCYTES # (AUTO) 0.3 /CMM (0.1-1.30); NEUTROPHILS # (AUTO) 10.1 /CMM (1.8-8.9); NEUTROPHILS % (AUTO) 93.4 % (43.0-81.0); PLATELET COUNT (AUTO) 214 /CMM (150-450); RED BLOOD CELL COUNT(AUTO) 2.33 MIL/uL (4.0-5.2); WHITE BLOOD COUNT (AUTO) 10.8 K/uL (4.3-11.0)
[2018-08-08 05:04] LABS: CALCIUM, SERUM 9.1 mg/dL (8.5-10.1); CARBON DIOXIDE 30 mmol/L (21-32); CHLORIDE 105 mmol/L (98-107); CREATININE 4.1 mg/dL (0.6-1.3); GLUCOSE 198 mg/dL (74-106); MAGNESIUM 2.3 mg/dL (1.8-2.4); PHOSPHORUS 5.2 mg/dL (2.5-4.9); POTASSIUM 4.5 mmol/L (3.5-5.1); SODIUM SERUM 143 mmol/L (136-145); UREA NITROGEN, BLOOD 25 mg/dL (7-18)
[2018-08-08] MEDS: NOREPINEPHRINE 16 MG in IV D5W 500 ML IV PRN (05:05)
[2018-08-08] MEDS: LEVOTHYROXINE SODIUM 75 MCG TABLET PO SCH (05:13)
[2018-08-08] MEDS: SUCRALFATE 1 G/10 ML UDC GT SCH ×4 (05:13→22:05)
--- NOTE | 2018-08-08 06:41 | NUR ---
ICU/FOOD SERVICE MANAGER MIDNIGHT BLOOD SUGAR IS 198, THERE IS 3 UNITS OF REGULAR COVERAGE FOR THIS. WILL CONTINUE TO MONITOR THIS PT'S BLOOD SUGAR ORDERED BY MD AND HOSPITAL PROTOCOL. NO ACUTE DISTRESS SEEN AT THIS TIME. PT WAS TURNED AND REPOSITIONED FOR COMFORT AND CARE.
[2018-08-08] MEDS: LEVALBUTEROL HCL NEB 1.25 MG/0.5 ML VIAL.NEB IH SCH ×3 (07:05→23:34)
--- NOTE | 2018-08-08 07:25 | NUR ---
INITIAL: RECEIVED REPORT RECEIVED FROM PRIYANKA WINKLER. BREATHING EVEN & UNLABORED, TOLERATING O2 @ 2LPM VIA NC. ON TELE W/ AV PACING, HR 81. NO RESPIRATORY OR CARDIAC DISTRESS NOTED. RIGHT FEMORAL TRIPLE LUMEN CATH INTACT & PATENT W/ DRESSING CDI & ONGOING TITRATION OF LEVOPHED DRIP INFUSING WELL 8 MCG/HR. DENIES ANY PAIN OR DISCOMFORT @ THIS TIME. SAFETY MEASURES IN PLACE W/ SIDE RAILS UP & BED ALARM ON. WILL CONTINUE TO MONITOR CLOSELY.
[2018-08-08] MEDS: SEVELAMER CARBONATE 800 MG TABLET PO SCH ×3 (07:42→17:10)
[2018-08-08] MEDS: HYDROCORTISONE SOD SUCCINATE 100 MG/2 ML VIAL IV SCH ×3 (09:36→17:10)
[2018-08-08] MEDS: GABAPENTIN 100 MG CAPSULE PO SCH ×3 (09:36→17:20)
[2018-08-08] MEDS: PANTOPRAZOLE 40 MG VIAL IV SCH ×2 (09:36→17:10)
[2018-08-08] MEDS: LACTOBACILLUS RHAMNOSUS GG 1 EACH CAP.SPRINK PO SCH ×2 (09:36→17:11)
[2018-08-08] MEDS: VIT B CMPLX 3/FA/VIT C/BIOTIN 1 TAB TABLET PO SCH (09:36)
[2018-08-08] MEDS: MIDODRINE HCL (5MG) 5 MG TABLET PO SCH ×3 (09:37→17:10)
[2018-08-08] MEDS: SERTRALINE HCL 50 MG TABLET PO SCH (09:37)
[2018-08-08] MEDS: LIDOCAINE 5% (PATCH) 1 EA PATCH TP SCH (09:37)
[2018-08-08] MEDS: TRAMADOL HCL 50 MG TABLET PO SCH ×3 (09:37→17:11)
[2018-08-08] MEDS: PROSOURCE / PROSTAT (PYXIS) 30 ML UDC PO SCH ×2 (09:42→17:20)
[2018-08-08] MEDS: NEPRO VAN 237 ML CAN PO SCH (11:43)
--- NOTE | 2018-08-08 18:44 | NUR ---
CLOSING: No significant changes noted w/in shift. Tolerating NC at 2lpm, sating at 100%. SR on telemonitor. R femoral TLC kept patent & intact w/ Levophed Drip TURNED OFF AT 1842. , no s/sx of INFECTION OR DISTRESS WILL ENDORSE CARE TO PM SHIFT. IN ADDITION AUDI FROM CASE MANAGEMENT CALLED WITH PT PCP TELEPHONE NUMBER OF OFFICE, PCP NAME TABBY CHAVIS FROM [facility].
--- NOTE | 2018-08-08 18:53 | NUR ---
PCP FOR THONY CONKLIN OFFICE TELEPHONE NUMBER
--- NOTE | 2018-08-08 19:40 | NUR ---
ICU/WIRE PULLER RECEIVED REPORT FROM DAY NURSE. SEE FLOWSHEET FOR ASSESSMENT ALONG WITH ALL SKIN ISSUES WHICH ARE ADDRESSES AND EACH INTERVENTIONS TO THEM. PT CURRENTLY HAS NO IVF. PT IS ALERT X 2. PT HAS N/C AT 2.5 LITERS , WITH SATURATION AT 93-95%. PT WS TURNED AND REPOSITIONED FOR COMFORT AND CARE. WILL CONTINUE TO MONITOR THIS PT.NO ACUTE DISTRESS SEEN AT THIS TIME.
--- NOTE | 2018-08-08 20:30 | NUR ---
ICU/CHILD AND FAMILY SERVICES SPECIALIST GRANDDAUGHTER AT BEDSIDE EXPLAIN THE FUTURE PLANS OF CARE FOR HER. AND ANSWERED SOME QUESTIONS. SHE STAYED AT BEDSIDE FOR 1.5 HRS. SAID SHE'LL RETURN TOMORROW.
[2018-08-08] MEDS: ATORVASTATIN 10 MG TABLET PO SCH (22:05)
--- NOTE | 2018-08-08 22:05 | NUR ---
ICU/PAVING BED MAKER PT WAS THEN TURNED AND REPOSITIONED FOR COMFORT AND CARE. PT TOLERATED THIS WELL.WILL CONTINUE TO MONITOR THIS PT. NO ACUTE DISTRESS SEEN AT THIS TIME. WILL CONTINUE TO MONITOR THIS PT
[2018-08-09] VITALS (31 sets, daily range): BP systolic 86–122; BP diastolic 33–68
[2018-08-09] MEDS: BLOOD SUGAR DIAGNOSTIC 1 EACH STRIP IN SCH ×2 (00:17→06:21)
[2018-08-09] MEDS: FLUDROCORTISONE 0.1 MG TABLET PO SCH ×4 (00:17→17:03)
--- NOTE | 2018-08-09 00:20 | NUR ---
ICU/HAZMAT CDL DRIVER MIDNIGHT BLOOD SUGAR IS 203, THERE IS 6 UNITS OF REGULAR COVERAGE FOR THIS. WILL CONTINUE TO MONITOR THIS PT'S BLOOD SUGAR ORDERED BY MD AND HOSPITAL PROTOCOL. NO ACUTE DISTRESS SEEN AT THIS TIME. PT WAS TURNED AND REPOSITIONED FOR COMFORT AND CARE.
[2018-08-09] MEDS: INSULIN REGULAR, HUMAN 100 UNIT/ML 3 ML VIAL SQ PRN ×4 (00:41→17:39)
--- NOTE | 2018-08-09 02:00 | NUR ---
ICU/ENTERTAINMENT CENTRE MANAGER PT WAS GIVEN AM CARE, ALONG WITH ORAL CARE. PT TOLERATED HER OXYGEN N/C SETTINGS WITH SATURATION AT 93-99%. PT WAS TURNED AND REPOSITIONED FOR COMFORT AND CARE. NO ACUTE DISTRESS SEEN AT THIS TIME. PT APPEARS TO BE RESTING COMFORTABLE.
[2018-08-09 05:24] LABS: CALCIUM, SERUM 9.3 mg/dL (8.5-10.1); CARBON DIOXIDE 31 mmol/L (21-32); CHLORIDE 103 mmol/L (98-107); CREATININE 5.3 mg/dL (0.6-1.3); GLUCOSE 136 mg/dL (74-106); MAGNESIUM 2.4 mg/dL (1.8-2.4); PHOSPHORUS 6.5 mg/dL (2.5-4.9); POTASSIUM 4.6 mmol/L (3.5-5.1); SODIUM SERUM 142 mmol/L (136-145); UREA NITROGEN, BLOOD 37 mg/dL (7-18)
[2018-08-09] MEDS: SUCRALFATE 1 G/10 ML UDC GT SCH ×4 (06:21→22:05)
[2018-08-09] MEDS: LEVOTHYROXINE SODIUM 75 MCG TABLET PO SCH (06:21)
--- NOTE | 2018-08-09 06:30 | NUR ---
ICU/BUSINESS SERVICES REPRESENTATIVE MORNING BLOOD SUGAR IS 136, THERE IS 2 UNITS OF REGULAR COVERAGE FOR THIS. WILL CONTINUE TO MONITOR THIS PT'S BLOOD SUGAR ORDERED BY MD AND HOSPITAL PROTOCOL. NO ACUTE DISTRESS SEEN AT THIS TIME. PT WAS TURNED AND REPOSITIONED FOR COMFORT AND CARE.
[2018-08-09 07:28] LABS: BASOPHILS % (AUTO) 0.1 % (0.0-2.0); HEMATOCRIT 24 % (33-45); HEMOGLOBIN 7.5 g/dL (11.5-14.8); LYMPHOCYTES # (AUTO) 0.3 /CMM (0.8-4.8); LYMPHOCYTES % (AUTO) 3.8 % (20.0-44.0); MEAN CORPUSCULAR HGB CONC 31 g/dl (31.0-36.0); MEAN CORPUSCULAR VOLUME 98 fL (82-100); MONOCYTES # (AUTO) 0.4 /CMM (0.1-1.30); MONOCYTES % (AUTO) 4.5 % (2.0-12.0); NEUTROPHILS # (AUTO) 8.3 /CMM (1.8-8.9); NEUTROPHILS % (AUTO) 91.6 % (43.0-81.0); PLATELET COUNT (AUTO) 200 /CMM (150-450); RED BLOOD CELL COUNT(AUTO) 2.44 MIL/uL (4.0-5.2); WHITE BLOOD COUNT (AUTO) 9.1 K/uL (4.3-11.0)
--- NOTE | 2018-08-09 07:30 | NUR ---
received patient from [facility]. patient awake and oriented x3 with hx and periods of confusion and forgetfulness. patient in no sign of distress. tolerating low flow 02 nc. no sob, difficulty breathing or pain. patient iv site c/d/i/p and right upper arm av shunt +bruit/thrill. patient tele nsr. vss off levo since yesterday. all needs in reach, patient appears stable. safety, skin, aspiration precautions in place and will monitor
[2018-08-09] MEDS: LEVALBUTEROL HCL NEB 1.25 MG/0.5 ML VIAL.NEB IH SCH ×3 (07:40→23:51)
[2018-08-09] MEDS ORDERED: DEXTROSE 50%-WATER 50 ML DISP.SYRIN IV PRN (08:00)
[2018-08-09] MEDS: PANTOPRAZOLE 40 MG VIAL IV SCH ×2 (08:04→16:21)
[2018-08-09] MEDS: HYDROCORTISONE SOD SUCCINATE 100 MG/2 ML VIAL IV SCH ×3 (08:04→16:21)
[2018-08-09] MEDS: VIT B CMPLX 3/FA/VIT C/BIOTIN 1 TAB TABLET PO SCH (08:05)
[2018-08-09] MEDS: SERTRALINE HCL 50 MG TABLET PO SCH (08:05)
[2018-08-09] MEDS: GABAPENTIN 100 MG CAPSULE PO SCH ×3 (08:05→16:22)
[2018-08-09] MEDS: SEVELAMER CARBONATE 800 MG TABLET PO SCH ×3 (08:05→17:03)
[2018-08-09] MEDS: TRAMADOL HCL 50 MG TABLET PO SCH ×3 (08:05→16:28)
[2018-08-09] MEDS: LACTOBACILLUS RHAMNOSUS GG 1 EACH CAP.SPRINK PO SCH ×2 (08:05→16:22)
[2018-08-09] MEDS: PROSOURCE / PROSTAT (PYXIS) 30 ML UDC PO SCH ×2 (08:06→16:24)
[2018-08-09] MEDS: Z GUARD REMEDY 2 OZ OINT TP PRN ×2 (08:06→12:03)
[2018-08-09] MEDS: MIDODRINE HCL (5MG) 5 MG TABLET PO SCH ×3 (08:06→16:22)
[2018-08-09] MEDS: LIDOCAINE 5% (PATCH) 1 EA PATCH TP SCH (09:10)
[2018-08-09] MEDS: NEPRO VAN 237 ML CAN PO SCH (11:52)
[2018-08-09] MEDS ORDERED: BLOOD SUGAR DIAGNOSTIC 1 EACH STRIP IN SCH (12:00)
[2018-08-09] MEDS: BLOOD SUGAR DIAGNOSTIC 1 EACH STRIP VI SCH ×3 (12:04→22:09)
--- NOTE | 2018-08-09 12:13 | NUR ---
nadja brown at bedside. aware patient coughing up thick yellow secretions. vss at this time. order to downgrade to tele when bed available. no other orders.
--- NOTE | 2018-08-09 15:40 | NUR ---
report given to layton for cate.
--- NOTE | 2018-08-09 15:50 | NUR ---
patient transferred to bed 115 per order. found patient belongings. wallet, purse, blue bag, scarf, earphones, gown, 3 rings. layton baird notified. 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 notified jw vogel of transfer and belongings found. patient stable. no sob, difficulty breathing. vss. pending HD per oli salas she will be around 5pm for HD. all due meds given and all needs met. patient safety, aspiration, skin precautions all in place and care endorsed to oli traylor for cate
--- NOTE | 2018-08-09 16:00 | NUR ---
STUFFING MACHINE OPERATOR NOTE RECEIVED REPORT FROM CHERI ICU NURSE. PATIENT CAME IN VIA GURNEY. ASLEEP BUT EASILY AROUSABLE. ON TELE MONITOR, AV PACING. HAS A RIGHT ARM AV SHUNT AND RIGHT FEMORAL TRIPLE LUMEN CATH. LAST BLOOD SUGAR WAS 150 AND ICU NURSE COVERED IT WITH 2 UNITS OF INSULIN. ON 2L NC, SATING AT 100%. PATIENT WENT BACK TO SLEEP. ALL BELONGINGS CHECKED BY THE CERTIFIED CONTROL SYSTEMS TECHNICIAN. NO COMPLAINS OF ANY PAIN OR ANY SOB. BED LOCKED AND IN LOWEST POSITION. CALL LIGHT WITHIN REACH. WILL CONTINUE TO MONITOR
--- NOTE | 2018-08-09 18:05 | NUR ---
RN NOTES PATIENT IS GETTING DIALYSIS
--- NOTE | 2018-08-09 18:42 | NUR ---
RN CLOSING NOTES PATIENT IN BED AWAKE, AND ALERT X2. FORGETFUL AT TIMES. DIALYSIS NURSE AT BEDSIDE. NO COMPLAINS OF ANY PAIN AT THIS TIME. NO SOB. ON 2L NC, AT 100%. ALL PM MEDS GIVEN. INSULIN COVERAGE GIVEN. PLAN TO DC TO GO TO [facility] PER FAMILY REQUEST. ON TELE MONITOR AV PACING. WILL ENDORSE TO NOC SHIFT FOR CONT OF CARE
--- NOTE | 2018-08-09 20:00 | NUR ---
kelvin rn notes received pts in bed currently on hemodialysis tx,pts is confused and forgetful , on tele av pacing on the monitor , on o2 at 2liters via nc ,sating 100% ,no sob no distress noted .per dialysis nurse , hd fluid output is 500cc, blood pressure on the 80-90s pts was put on trendelenberg position ,david Bernal made aware,nno order at this time continue to monitor pts , pts at this time is awake responsive with period of confusion, check bp at 830pm bp 90/40 , all needs attended too call light within reach all due meds given as order , kept pts clean dry and comfortable,will continue to monitor.
[2018-08-09] MEDS: ATORVASTATIN 10 MG TABLET PO SCH (22:05)
[2018-08-09] MEDS: *INSULIN REGULAR(HUMULIN R)HUM 100 UNIT/ML VIAL SQ PRN (22:10)
[2018-08-10] VITALS (10 sets, daily range): BP systolic 86–99; BP diastolic 39–75
[2018-08-10] MEDS: FLUDROCORTISONE 0.1 MG TABLET PO SCH ×4 (00:51→17:16)
--- NOTE | 2018-08-10 01:31 | NUR ---
kelvin rn notes AT 10pm ,blood sugar of 125 mg/dl no insulin coverage given per sliding scale, pts sating 100% NO SOB NO DISTRESS NOTED , WILL CHECK BLOOD SUGAR AGAIN IN AM. WILL CONTINUE TO MONITOR PTS.
--- NOTE | 2018-08-10 07:43 | NUR ---
BRIGITTE NOTE RECEIVED PATIENT IN BED ALERT ORIENTED X2 , WITH PERIODS OF CONFUSION , ON 2L NC NO SOB NOTED , RT ARM AV SHUNT WITH TRILL AND BRUIT SOUND,BLOOD SUGAR CHECKED 109 MG\DL , RT FEMORAL TLC IN PLACE . BED IN LOWEST AND LOCKED POSITION , WILL CONT TO MONITOR CLOSELY, CALL LIGHT WITHIN REACH ,PLAN OF CARE DILLSEED WITH PATIENT Addendum: 08/10/18 at 3453 by FRANCHESCA WEBB RN CORRECTION IN SPELLING DISCUSSED WITH PATIENT
[2018-08-10 07:51] LABS: CALCIUM, SERUM 9.5 mg/dL (8.5-10.1); CARBON DIOXIDE 26 mmol/L (21-32); CHLORIDE 110 mmol/L (98-107); CREATININE 4.3 mg/dL (0.6-1.3); GLUCOSE 129 mg/dL (74-106); MAGNESIUM 2.3 mg/dL (1.8-2.4); PHOSPHORUS 5.3 mg/dL (2.5-4.9); POTASSIUM 4.8 mmol/L (3.5-5.1); SODIUM SERUM 146 mmol/L (136-145); UREA NITROGEN, BLOOD 33 mg/dL (7-18)
[2018-08-10] MEDS: LEVALBUTEROL HCL NEB 1.25 MG/0.5 ML VIAL.NEB IH SCH ×3 (07:55→23:13)
[2018-08-10] MEDS: HYDROCORTISONE SOD SUCCINATE 100 MG/2 ML VIAL IV SCH ×3 (08:16→16:33)
[2018-08-10] MEDS: SUCRALFATE 1 G/10 ML UDC GT SCH ×4 (08:16→21:26)
[2018-08-10] MEDS: PANTOPRAZOLE 40 MG VIAL IV SCH ×2 (08:16→16:35)
[2018-08-10] MEDS: MIDODRINE HCL (5MG) 5 MG TABLET PO SCH ×3 (08:17→16:33)
[2018-08-10] MEDS: TRAMADOL HCL 50 MG TABLET PO SCH ×3 (08:17→16:34)
[2018-08-10] MEDS: VIT B CMPLX 3/FA/VIT C/BIOTIN 1 TAB TABLET PO SCH (08:17)
[2018-08-10] MEDS: GABAPENTIN 100 MG CAPSULE PO SCH ×3 (08:17→16:34)
[2018-08-10] MEDS: SEVELAMER CARBONATE 800 MG TABLET PO SCH ×3 (08:18→17:16)
[2018-08-10] MEDS: SERTRALINE HCL 50 MG TABLET PO SCH (08:18)
[2018-08-10] MEDS: BLOOD SUGAR DIAGNOSTIC 1 EACH STRIP VI SCH ×4 (08:18→21:40)
[2018-08-10] MEDS: PROSOURCE / PROSTAT (PYXIS) 30 ML UDC PO SCH ×2 (08:18→16:40)
[2018-08-10] MEDS: LACTOBACILLUS RHAMNOSUS GG 1 EACH CAP.SPRINK PO SCH ×2 (08:18→16:33)
[2018-08-10] MEDS: LIDOCAINE 5% (PATCH) 1 EA PATCH TP SCH (08:18)
[2018-08-10] MEDS: LEVOTHYROXINE SODIUM 75 MCG TABLET PO SCH (08:18)
--- NOTE | 2018-08-10 08:49 | NUR ---
NEEL RN NOTE SEEN BY DR MONTALVO, OK TO AMBULATE TOLERATED, WILL F\U
[2018-08-10 09:17] LABS: BASOPHILS % (AUTO) 0.2 % (0.0-2.0); HEMATOCRIT 21 % (33-45); LYMPHOCYTES # (AUTO) 0.7 /CMM (0.8-4.8); MEAN CORPUSCULAR HGB CONC 33 g/dl (31.0-36.0); MEAN CORPUSCULAR VOLUME 96 fL (82-100); MONOCYTES # (AUTO) 0.7 /CMM (0.1-1.30); MONOCYTES % (AUTO) 7.7 % (2.0-12.0); NEUTROPHILS # (AUTO) 7.3 /CMM (1.8-8.9); NEUTROPHILS % (AUTO) 84.1 % (43.0-81.0); PLATELET COUNT (AUTO) 241 /CMM (150-450); RED BLOOD CELL COUNT(AUTO) 2.14 MIL/uL (4.0-5.2); WHITE BLOOD COUNT (AUTO) 8.7 K/uL (4.3-11.0)
[2018-08-10 09:19] LABS: HEMOGLOBIN 6.8 g/dL (11.5-14.8)
--- NOTE | 2018-08-10 09:51 | NUR ---
NEEL RN NOTE ABLE TO SIT AT EDGE OF BED WITH MAX ASSISTANCE WITH 2 NURSES ,UNABLE TO GET OUT OFF ABED AT THIS TIME, WILL F\U WITH MD TO ORDER PT ,WILL CONT TO MONITOR CLOSELY
--- NOTE | 2018-08-10 09:54 | NUR ---
NEEL RN NOTE SPOKE WITH DR LUZ ACADEMIC DIRECTOR NOTIFIED THAT HG 6.8 STATED WILL MONITOR TILL TOMORROW AND IF STILL LOW WILL GIVE BLOOD WITH HD , WILL CONT TO MONITOR CLOSELY
--- NOTE | 2018-08-10 12:00 | NUR ---
MS RN NOTE SEEN BY DR FERNANDES NOTIFIED THAT PATIENT HAS OCCASIONAL COUGH , NO NEW ORDER GIVEN AT THIS TIME
[2018-08-10] MEDS: NEPRO VAN 237 ML CAN PO SCH (12:19)
[2018-08-10] MEDS: *INSULIN REGULAR(HUMULIN R)HUM 100 UNIT/ML VIAL SQ PRN ×2 (12:43→21:43)
[2018-08-10 13:19] LABS: LYMPHOCYTES % (MANUAL) 5 % (16-48); MONOCYTES % (MANUAL) 6 % (0-11.0); NEUTROPHILS % (MANUAL) 89 (42-76)
--- NOTE | 2018-08-10 14:38 | NUR ---
MS RN NOTE SEEN BY MARK WINKLER NOTIFIED THAT PATIENT NEED PT TX, STATED THAT WILL ORDER , WILL F\U TURN REPOSITION Q2 HOUR , KEEP CLEAN DRY. WILL CONT TO MONITOR CLOSELY
[2018-08-10] MEDS: INSULIN REGULAR, HUMAN 100 UNIT/ML 3 ML VIAL SQ PRN (17:19)
--- NOTE | 2018-08-10 18:46 | NUR ---
ms rn note fed by staff , ate 25% of dinner ,keep clean dry , all needs attended ,call light within reach ,no sob noted at This time
--- NOTE | 2018-08-10 19:05 | NUR ---
RN MS OPENING NOTES RECEIVED PATIENT IN BED AWAKE ALERT AND ORIENTED X2, NOTED PERIODS OF FORGETFULNESS AND CONFUSION, ON 2 L VIA NC 02 100%, RESPIRATIONS EVEN AND UNLABORED WITH EQUAL RISE AND FALL OF CHEST, DENIES ANY PAIN OR DISCOMFORT AT THIS TIME, RIGHT FEMORAL TRIPLE LUMEN INTACT AND PATENT, WITH GOOD BLOOD RETURN , DRESSING REMAINS CLEAN, DRY AND INTACT, RIGHT UPPER ARM AV SHUNT WITH BRUIT PRESENT, NO BLEEDING TO SITE REMAINS CLEAN AND DRY,HEELS AND SACRAL OFFLOADED, REPOSITIONED, ORIENTED TO STAFF AND CALL LIGHT AND KEPT WITHIN REACH, LOW BED AND LOCKED, SAFETY PRECAUTIONS IN PLACE, ALL NEEDS ATTENDED AT THIS TIME, REMAINS COMFORTABLE WILL CONTINUE TO MONITOR AND ATTEND TO NEEDS, WILL CLOSELY MONITOR FOR ANY CHANGE TO B/P, NO S/S OF HYPOTENSION AT THIS TIME.
[2018-08-10] MEDS: ATORVASTATIN 10 MG TABLET PO SCH (21:26)
[2018-08-11] VITALS (9 sets, daily range): BP systolic 95–138; BP diastolic 33–75
[2018-08-11] MEDS: FLUDROCORTISONE 0.1 MG TABLET PO SCH ×4 (00:22→17:44)
--- NOTE | 2018-08-11 06:27 | NUR ---
RN MS CLOSING NOTES PATIENT IN BED AWAKE ALERT AND ORIENTED X2, NOTED PERIODS OF FORGETFULNESS AND CONFUSION AND YELLING OUT ARTHUR, ON 2 L VIA NC 02 100%, RESPIRATIONS EVEN AND UNLABORED WITH EQUAL RISE AND FALL OF CHEST, DENIES ANY PAIN OR DISCOMFORT AT THIS TIME, RIGHT FEMORAL TRIPLE LUMEN INTACT AND PATENT, WITH GOOD BLOOD RETURN , DRESSING REMAINS CLEAN, DRY AND INTACT, RIGHT UPPER ARM AV SHUNT WITH BRUIT PRESENT, NO BLEEDING TO SITE REMAINS CLEAN AND DRY,HEELS AND SACRAL OFFLOADED, REPOSITIONED, AND APPLIED ZGUARD AND MEPILEX NOTED SACRAL WITH OPEN SKIN APPEARS SUPERFICIAL PINK IN COLOR WOUND CARE PROVIDED ORDERED, CALL LIGHT KEPT WITHIN REACH, LOW BED AND LOCKED, SAFETY PRECAUTIONS IN PLACE, ALL NEEDS ATTENDED AT THIS TIME, REMAINS COMFORTABLE WILL CONTINUE TO MONITOR AND AND ENDORSE TO NEXT SHIFT NO S/S OF HYPOTENSION AT THIS TIME, PATIENT ASYMPTOMATIC. NO CHANGES THROUGHOUT SHIFT. Addendum: 08/11/18 at 0633 by JOCELINE MONAE RN CLARIFICATION APPLIED WOUND CARE ORDERED ZGUARD AND OIL EMULSION
[2018-08-11] MEDS: LEVALBUTEROL HCL NEB 1.25 MG/0.5 ML VIAL.NEB IH SCH ×4 (07:35→23:39)
[2018-08-11] MEDS: SEVELAMER CARBONATE 800 MG TABLET PO SCH ×3 (08:00→18:00)
--- NOTE | 2018-08-11 08:00 | NUR ---
MS RN NOTES PATIENT IN BED RESTING NO SOB OR ACUTE DISTRESS NOTED. PATIENT ALERT, ORIENTED X2. DENIES ANY PAIN. WITH CENTRAL LINE ON RIGHT GROIN, INTACT PATENT. BED IN LOW LOCKED POSITION. CALL LIGHT WITHIN REACH. WILL CONTINUE TO MONITOR.
[2018-08-11 08:10] LABS: HEMATOCRIT 22 % (33-45); HEMOGLOBIN 7.2 g/dL (11.5-14.8); LYMPHOCYTES # (AUTO) 0.7 /CMM (0.8-4.8); LYMPHOCYTES % (AUTO) 7.3 % (20.0-44.0); MEAN CORPUSCULAR HGB CONC 33 g/dl (31.0-36.0); MEAN CORPUSCULAR VOLUME 97 fL (82-100); MONOCYTES # (AUTO) 0.8 /CMM (0.1-1.30); MONOCYTES % (AUTO) 8.1 % (2.0-12.0); NEUTROPHILS # (AUTO) 8.2 /CMM (1.8-8.9); NEUTROPHILS % (AUTO) 84.6 % (43.0-81.0); PLATELET COUNT (AUTO) 277 /CMM (150-450); WHITE BLOOD COUNT (AUTO) 9.7 K/uL (4.3-11.0)
[2018-08-11] MEDS: BLOOD SUGAR DIAGNOSTIC 1 EACH STRIP VI SCH ×4 (08:16→21:41)
[2018-08-11] MEDS: MIDODRINE HCL (5MG) 5 MG TABLET PO SCH ×3 (08:20→17:43)
[2018-08-11] MEDS: SUCRALFATE 1 G/10 ML UDC GT SCH ×4 (08:20→21:41)
[2018-08-11] MEDS: LEVOTHYROXINE SODIUM 75 MCG TABLET PO SCH (08:21)
[2018-08-11] MEDS: PANTOPRAZOLE 40 MG VIAL IV SCH ×2 (08:21→18:01)
[2018-08-11] MEDS: HYDROCORTISONE SOD SUCCINATE 100 MG/2 ML VIAL IV SCH (08:21)
[2018-08-11] MEDS: LACTOBACILLUS RHAMNOSUS GG 1 EACH CAP.SPRINK PO SCH ×2 (09:00→17:00)
[2018-08-11] MEDS: LIDOCAINE 5% (PATCH) 1 EA PATCH TP SCH (09:00)
[2018-08-11] MEDS: GABAPENTIN 100 MG CAPSULE PO SCH ×3 (09:00→17:00)
[2018-08-11] MEDS: VIT B CMPLX 3/FA/VIT C/BIOTIN 1 TAB TABLET PO SCH (09:00)
[2018-08-11] MEDS: PROSOURCE / PROSTAT (PYXIS) 30 ML UDC PO SCH ×2 (09:00→17:00)
[2018-08-11] MEDS: SERTRALINE HCL 50 MG TABLET PO SCH (09:00)
[2018-08-11] MEDS: TRAMADOL HCL 50 MG TABLET PO SCH ×3 (09:00→17:00)
--- NOTE | 2018-08-11 11:00 | NUR ---
MS RN NOTES PATIENT APPEARS CONFUSED . PATIENT ORIENTED X2. IN STABLE CONDITION. BP OF 96/44 PULSE 85 RESPIRATION 18 O2 SATURATION 98%. PATIENT SEEN AND EVALUATED BY MARK ARGUELLES STATES WILL PLACE ORDERS. WILL CONTINUE TO MONITOR.
[2018-08-11] MEDS: INSULIN REGULAR, HUMAN 100 UNIT/ML 3 ML VIAL SQ PRN ×3 (12:05→21:48)
[2018-08-11] MEDS: NEPRO VAN 237 ML CAN PO SCH (12:18)
[2018-08-11] MEDS ORDERED: HYDROCORTISONE SOD SUCCINATE 100 MG/2 ML VIAL IV SCH (17:00)
--- NOTE | 2018-08-11 17:40 | NUR ---
MS RN NOTES PATIENT NOTED WITH INCREASED WEAKNESS AND CONFUSION. LETHARGIC. VS WNL BP OF 106/50 PULSE OF 76 O2 SAT. 99% TEMP OF 98.5 . MARK [place] 3 YEAR OLDS PRESCHOOL TEACHER MADE AWARE ORDERS RECEIVED FOR UA WITH STRAIGHT, AGB AND BMP, AMONIA, 1 UNIT OF PRBC, CHEST XRAY, lACTIC ACID. MARK STATES SHE WILL PLACE ORDERS. NOTED AND CARRIED OUT. WILL CONTINUE TO MONITOR PATIENT CLOSELY. PATIENT ALERT, ORIENTED X1 CONFUSED.
[2018-08-11 18:22] LABS: ABG BASE EXCESS 0.2 mmol/L; ABG OXYGEN SATURATION 97.1 % (92.0-98.5); ABG PH 7.372 (7.350-7.450); ABG PO2 100.6 mmHg (75.0-100.0); AaDO2 45.9 mmHg; COHb 0.6 % (0.5-1.5); MetHb 0.9 % (0.0-1.5); O2Hb 95.6 % (94.0-97.0); SITE, ABG Left Brachial; VENT MODE, BG 2L NC
[2018-08-11 18:27] LABS: CALCIUM, SERUM 9.3 mg/dL (8.5-10.1); CARBON DIOXIDE 27 mmol/L (21-32); CHLORIDE 104 mmol/L (98-107); GLUCOSE 221 mg/dL (74-106); POTASSIUM 5.3 mmol/L (3.5-5.1); SODIUM SERUM 140 mmol/L (136-145); UREA NITROGEN, BLOOD 52 mg/dL (7-18)
--- NOTE | 2018-08-11 18:42 | NUR ---
MS RN NOTES PATIENT IN BED RESTING SEEMS MORE ALERT, ATE DINNER. PATIENT ALERT, ORIENTED X2. DENIES ANY PAIN OR DISCOMFORT. ALL DUE MEDICATIONS ADMINISTERED. ALL NEEDS MET. CENTRAL LINE INTACT PATENT. BED IN LOW LOCKED POSITION. CALL LIGHT WITHIN REACH. WILL CONTINUE TO MONITOR.
[2018-08-11 18:44] LABS: SERUM AMMONIA < 10 umol/L (11-32)
--- NOTE | 2018-08-11 20:00 | NUR ---
RN INITIAL NOTES RECEIVED PATIENT IN BED RESTING, NO SOB OR ACUTE DISTRESS NOTED. PATIENT ALERT, ORIENTED X2 WITH SOME CONFUSION. DENIES ANY PAIN. WITH CENTRAL LINE ON RIGHT GROIN, INTACT PATENT. R ARM AV SHUNT. BED IN LOW LOCKED POSITION. CALL LIGHT WITHIN REACH. WILL CONTINUE TO MONITOR.
[2018-08-11] MEDS: ATORVASTATIN 10 MG TABLET PO SCH (21:41)
[2018-08-12] VITALS: BP 96/51
[2018-08-12] MEDS: FLUDROCORTISONE 0.1 MG TABLET PO SCH ×3 (00:58→12:00)
[2018-08-12 02:00] VITALS: BP 112/61
[2018-08-12 04:00] VITALS: BP 111/61
[2018-08-12 06:45] LABS: BASOPHILS % (AUTO) 0.1 % (0.0-2.0); HEMATOCRIT 26 % (33-45); HEMOGLOBIN 8.4 g/dL (11.5-14.8); LYMPHOCYTES # (AUTO) 0.6 /CMM (0.8-4.8); LYMPHOCYTES % (AUTO) 6.6 % (20.0-44.0); MEAN CORPUSCULAR HGB CONC 33 g/dl (31.0-36.0); MEAN CORPUSCULAR VOLUME 94 fL (82-100); MONOCYTES # (AUTO) 0.7 /CMM (0.1-1.30); MONOCYTES % (AUTO) 7.4 % (2.0-12.0); NEUTROPHILS # (AUTO) 8.4 /CMM (1.8-8.9); NEUTROPHILS % (AUTO) 85.9 % (43.0-81.0); PLATELET COUNT (AUTO) 279 /CMM (150-450); RED BLOOD CELL COUNT(AUTO) 2.72 MIL/uL (4.0-5.2); WHITE BLOOD COUNT (AUTO) 9.7 K/uL (4.3-11.0)
[2018-08-12 07:00] LABS: CALCIUM, SERUM 9.8 mg/dL (8.5-10.1); CARBON DIOXIDE 27 mmol/L (21-32); CHLORIDE 105 mmol/L (98-107); CREATININE 6.2 mg/dL (0.6-1.3); GLUCOSE 153 mg/dL (74-106); MAGNESIUM 2.4 mg/dL (1.8-2.4); PHOSPHORUS 5.2 mg/dL (2.5-4.9); POTASSIUM 5.6 mmol/L (3.5-5.1); SODIUM SERUM 141 mmol/L (136-145); UREA NITROGEN, BLOOD 57 mg/dL (7-18)
--- NOTE | 2018-08-12 07:15 | NUR ---
RN NOTES RECEIVED PATIENT IN BED RESTING COMFORTABLY. EASILY AROUSABLE. NO PAIN OR ACUTE DISTRESS AT THIS TIME. RESPIRATION EVEN AND UNLABORED. SKIN IS DRY WARM TO TOUCH. PATIENT ALERT, ORIENTED X2 WITH SOME CONFUSION. PATIENT NOTED WITH RIGHT FEMORAL TRIPLE LUMEN. INTACT AND PATENT. R ARM AV SHUNT. INTACT AND IN PLACE WELL. PLAN OF CARE DISCUSSED WITH PATIENT. ALL NEEDS ANTICIPATED. BED IN LOW LOCKED POSITION. CALL LIGHT WITHIN REACH. WILL CONTINUE TO MONITOR.
[2018-08-12] MEDS: LEVALBUTEROL HCL NEB 1.25 MG/0.5 ML VIAL.NEB IH SCH (07:27)
[2018-08-12] MEDS: LEVOTHYROXINE SODIUM 75 MCG TABLET PO SCH (07:30)
[2018-08-12] MEDS: SUCRALFATE 1 G/10 ML UDC GT SCH ×2 (07:30→12:00)
--- NOTE | 2018-08-12 07:33 | NUR ---
RN CLOSING NOTES PATIENT IN BED RESTING SEEMS MORE ALERT. PATIENT ALERT, ORIENTED X2. DENIES ANY PAIN OR DISCOMFORT. ALL DUE MEDICATIONS ADMINISTERED. ALL NEEDS MET. CENTRAL LINE INTACT PATENT. BED IN LOW LOCKED POSITION. CALL LIGHT WITHIN REACH. WILL ENDORSE TO AM RN
[2018-08-12 08:00] VITALS: BP 99/52
[2018-08-12] MEDS: SEVELAMER CARBONATE 800 MG TABLET PO SCH ×2 (08:00→13:00)
--- NOTE | 2018-08-12 08:00 | NUR ---
RN NOTES PATIENT REFUSED MORNING MEDICATIONS X3. EXPLAINED RISK AND BENEFITS. STILL REFUSED. WILL CONTINUE TO MONITOR.
[2018-08-12] MEDS: PANTOPRAZOLE 40 MG VIAL IV SCH (09:00)
[2018-08-12] MEDS: TRAMADOL HCL 50 MG TABLET PO SCH ×2 (09:00→13:00)
[2018-08-12] MEDS: PROSOURCE / PROSTAT (PYXIS) 30 ML UDC PO SCH (09:00)
[2018-08-12] MEDS: SERTRALINE HCL 50 MG TABLET PO SCH (09:00)
[2018-08-12] MEDS: VIT B CMPLX 3/FA/VIT C/BIOTIN 1 TAB TABLET PO SCH (09:00)
[2018-08-12] MEDS: LIDOCAINE 5% (PATCH) 1 EA PATCH TP SCH (09:00)
[2018-08-12] MEDS: GABAPENTIN 100 MG CAPSULE PO SCH ×2 (09:00→13:00)
[2018-08-12] MEDS: LACTOBACILLUS RHAMNOSUS GG 1 EACH CAP.SPRINK PO SCH (09:00)
[2018-08-12] MEDS ORDERED: predniSONE 10 MG TABLET PO SCH (09:00)
[2018-08-12] MEDS: MIDODRINE HCL (5MG) 5 MG TABLET PO SCH ×2 (09:00→13:00)
--- NOTE | 2018-08-12 09:30 | NUR ---
RN NOTES PATIENT IS CURRENTLY BEING DIALYZED AT THIS TIME. REMAINS IN STABLE CONDITION. WILL CONTINUE TO MONITOR.
[2018-08-12] MEDS: BLOOD SUGAR DIAGNOSTIC 1 EACH STRIP VI SCH ×2 (10:22→12:32)
[2018-08-12] MEDS: NEPRO VAN 237 ML CAN PO SCH (12:44)
[2018-08-12] MEDS ORDERED: FLUD0.1T PO (12:51)
[2018-08-12] MEDS ORDERED: ALBUTEROL FS 2.5 MG/0.5 ML VIAL.NEB NEB SCH (13:30)
--- NOTE | 2018-08-12 13:33 | NUR ---
RN NOTES PATIENT CONTINUES TO REFUSE ROUTINE MEDICATIONS X3. EXPLAINED RISK AND BENEFITS. PATIENT STATED " I DONT WANT TO TAKE MEDITCATIONS RIGHT NOW. IM FINE". WILL CONTINUE TO MONITOR.
--- NOTE | 2018-08-12 15:50 | NUR ---
RN NOTES PATIENT WAS PICKED UP BY 2 EMT FROM [facility]. REPORT GIVEN TO THE EMT AND TO PETERSON HARTLEY AT [facility], [place]. PATIENT REMAINS IN STABLE CONDITION UPON LEAVING THE HOSPITAL.
[2018-08-12 16:00] VITALS: BP 104/85
--- NOTE | 2018-08-16 02:55 | NUR ---
ICU/MEDICAL RECORD SPECIALIST PT WAS GIVEN AM CARE, ALONG WITH ORAL CARE. PT REMAINS ON CURRENT BIPAP SETTINGS WITH SATURATION AT 98% PT IS ON A TURNING AND ROTATING BED. NO ACUTE DISTRESS SEEN AT THIS TIME. PT APPEARS TO BE RESTING COMFORTABLE. Addendum: 08/16/18 at 0322 by PRIYANKA VARGAS LVN WRONG PT
== END 2018-08-12 15:30 | DRG 208 ==
LOC: ER 14:23 → TELE 16:34 → MED 07-29 08:39 → ICU 08-01 08:37 → TELE-TD 08-09 15:57 → MEDSG1 08-10 08:22
PROVIDERS: ADMIT Student in an Organized Health Care Education/Training Program
PROC: 5A1D70Z Performance of Urinary Filtration, Intermittent, Less than 6 Hours Per Day (ICD-10-PCS; 2018-07-28)
PROC: 5A1D70Z Performance of Urinary Filtration, Intermittent, Less than 6 Hours Per Day (ICD-10-PCS; 2018-07-31)
PROC: 30233P1 Transfusion of Nonautologous Frozen Red Cells into Peripheral Vein, Percutaneous Approach (ICD-10-PCS; 2018-08-01)
PROC: 06HY33Z Insertion of Infusion Device into Lower Vein, Percutaneous Approach (ICD-10-PCS; 2018-08-01)
PROC: 5A1945Z Respiratory Ventilation, 24-96 Consecutive Hours (ICD-10-PCS; principal; 2018-08-02)
PROC: 0BH17EZ Insertion of Endotracheal Airway into Trachea, Via Natural or Artificial Opening (ICD-10-PCS; 2018-08-02)
PROC: 5A1D70Z Performance of Urinary Filtration, Intermittent, Less than 6 Hours Per Day (ICD-10-PCS; 2018-08-02)
PROC: 30233K1 Transfusion of Nonautologous Frozen Plasma into Peripheral Vein, Percutaneous Approach (ICD-10-PCS; 2018-08-02)
PROC: 0W3P8ZZ Control Bleeding in Gastrointestinal Tract, Via Natural or Artificial Opening Endoscopic (ICD-10-PCS; 2018-08-02)
PROC: 5A09357 Assistance with Respiratory Ventilation, Less than 24 Consecutive Hours, Continuous Positive Airway Pressure (ICD-10-PCS; 2018-08-02)
PROC: 5A1D70Z Performance of Urinary Filtration, Intermittent, Less than 6 Hours Per Day (ICD-10-PCS; 2018-08-02)
PROC: 5A1D70Z Performance of Urinary Filtration, Intermittent, Less than 6 Hours Per Day (ICD-10-PCS; 2018-08-03)
PROC: 0W3P8ZZ Control Bleeding in Gastrointestinal Tract, Via Natural or Artificial Opening Endoscopic (ICD-10-PCS; 2018-08-04)
PROC: 5A1D70Z Performance of Urinary Filtration, Intermittent, Less than 6 Hours Per Day (ICD-10-PCS; 2018-08-05)
PROC: 5A1D70Z Performance of Urinary Filtration, Intermittent, Less than 6 Hours Per Day (ICD-10-PCS; 2018-08-07)
PROC: 5A1D70Z Performance of Urinary Filtration, Intermittent, Less than 6 Hours Per Day (ICD-10-PCS; 2018-08-09)
PROC: 5A1D70Z Performance of Urinary Filtration, Intermittent, Less than 6 Hours Per Day (ICD-10-PCS; 2018-08-12)
DX: J69.0 Pneumonitis due to inhalation of food and vomit (principal); G93.41 Metabolic encephalopathy; J96.22 Acute and chronic respiratory failure with hypercapnia; J96.21 Acute and chronic respiratory failure with hypoxia; N18.6 End stage renal disease; I21.A1 Myocardial infarction type 2; I50.43 Acute on chronic combined systolic (congestive) and diastolic (congestive) heart failure; K26.4 Chronic or unspecified duodenal ulcer with hemorrhage; I13.2 Hypertensive heart and chronic kidney disease with heart failure and with stage 5 chronic kidney disease, or end stage renal disease; E87.1 Hypo-osmolality and hyponatremia; D68.59 Other primary thrombophilia; D62 Acute posthemorrhagic anemia; J44.0 Chronic obstructive pulmonary disease with (acute) lower respiratory infection; E66.2 Morbid (severe) obesity with alveolar hypoventilation; E27.40 Unspecified adrenocortical insufficiency; Z99.2 Dependence on renal dialysis; E11.22 Type 2 diabetes mellitus with diabetic chronic kidney disease; I25.10 Atherosclerotic heart disease of native coronary artery without angina pectoris; K21.9 Gastro-esophageal reflux disease without esophagitis; I48.91 Unspecified atrial fibrillation; E78.5 Hyperlipidemia, unspecified; Z95.0 Presence of cardiac pacemaker; E87.5 Hyperkalemia; J44.9 Chronic obstructive pulmonary disease, unspecified; D50.9 Iron deficiency anemia, unspecified; I35.0 Nonrheumatic aortic (valve) stenosis; J15.6 Pneumonia due to other Gram-negative bacteria; D63.8 Anemia in other chronic diseases classified elsewhere; Z68.37 Body mass index [BMI] 37.0-37.9, adult; I95.9 Hypotension, unspecified; R74.0 Nonspecific elevation of levels of transaminase and lactic acid dehydrogenase [LDH]; E86.0 Dehydration; E03.9 Hypothyroidism, unspecified; M54.31 Sciatica, right side; M81.0 Age-related osteoporosis without current pathological fracture
CPT/HCPCS: 31720; 36415; 36600; 71045-TC; 76700-TC; 80048-TC; 80053-TC; 80061-TC; 80202-TC; 82140-TC; 82272-TC; 82533; 82728-TC; 82803-TC; 82962-TC; 83540-TC; 83605-TC; 83735-TC; 83880; 84100-TC; 84443-TC; 84484-TC; 85025-TC; 85027-TC; 85610-TC; 85730-TC; 86706; 86850-TC; 86921-TC; 87040-TC; 87070-TC; 87081-TC; 87340; 90935-TC; 92521; 92526; 92611-TC; 93307-TC; 94002-TC; 94003-TC; 94760-TC; 94799-TC; 97110-TC; 97530-TC; A6402; C1751; C9113; G0378; J0696; J0885; J1610; J1720; J1815; J2370; J2543; J2916; J3370; J3490; J7030; J7040; J7050; J7060; P9016-BL; P9017-BL